=== PATIENT | female | born 1950 | race Caucasian/White ===

== ENCOUNTER → 2016-07-31 | Outpatient (CLI) | payer MEDICARE | LOC: WI 08:48 | PROVIDERS: ATTEND Nurse Practitioner Family | DX: Z12.31 Encounter for screening mammogram for malignant neoplasm of breast (principal) | CPT/HCPCS: 77067; G0202 ==

== ENCOUNTER 2016-08-30 13:41 | Emergency (ER) | payer MEDICARE ==
[2016-08-30] MEDS ORDERED: ASPIRIN 81 MG TABLET, CHEWABLE PO ONE (14:58)
[2016-08-30 15:25] LABS: ABSOLUTE BASOPHILS # (AUTO) 0.1 10^3/uL (0.0-0.2); ABSOLUTE EOSINOPHILS # (AUTO) 0.2 10^3/uL (0.0-0.6); ABSOLUTE LYMPHOCYTES (AUTO) 1.7 10^3/uL (0.5-4.7); ABSOLUTE MONOCYTES (AUTO) 0.6 10^3/uL (0.1-1.4); ABSOLUTE NEUT (AUTO) 5.2 10^3/uL (1.7-8.2); BASOPHILS % (AUTO) 0.9 % (0-2); EOSINOPHILS % (AUTO) 3.1 % (0-6); HEMATOCRIT 41.2 % (36.0-47.0); HEMOGLOBIN 13.9 g/dL (12.0-15.5); HGB HCT DIFFERENCE 0.5; LYMPHOCYTES % (AUTO) 21.1 % (13-45); MEAN CORPUSCULAR HEMOGLOBIN 28.6 pg (27.0-33.4); MEAN CORPUSCULAR HGB CONC 33.9 g/dL (32.0-36.0); MEAN CORPUSCULAR VOLUME 85 fl (80-97); RED BLOOD COUNT 4.87 10^6/uL (3.72-5.28); RED CELL DISTRIBUTION WIDTH 14.6 % (11.5-14.0); SEGMENTED NEUTROPHILS % (AUTO) 66.9 % (42-78); WHITE BLOOD COUNT 7.9 10^3/uL (4.0-10.5)
[2016-08-30 15:41] LABS: ALANINE AMINOTRANSFERASE 29 U/L (9-52); ALBUMIN 4.7 g/dL (3.5-5.0); ALKALINE PHOSPHATASE 91 U/L (38-126); ANION GAP 15 (5-19); ASPARTATE AMINO TRANSFERASE 21 U/L (14-36); BILIRUBIN,DIRECT 0.3 mg/dL (0.0-0.4); BILIRUBIN,TOTAL 0.7 mg/dL (0.2-1.3); BLOOD UREA NITROGEN 9 mg/dL (7-20); CALCIUM 10.5 mg/dL (8.4-10.2); CARBON DIOXIDE 31 mmol/L (22-30); CHLORIDE 99 mmol/L (98-107); CREATININE RESULT 0.63 mg/dL (0.52-1.25); GLUCOSE 102 mg/dL (75-110); SODIUM 144.5 mmol/L (137-145)
[2016-08-30 15:55] LABS: CREATINE KINASE MB < 0.22 ng/mL (<4.55); TROPONIN I < 0.012 ng/mL
--- NOTE | 2016-08-30 16:05 | ER Document Report ---
ED General - General Chief Complaint: Arm Pain Stated Complaint: NECK/ARM PAIN Mode of Arrival: Ambulatory Information source: Patient Notes: 65 yr old female presents with complaints of left neck pain, dizziness and left abd pain. Pt notes that these pains have been intermittent over the past few months to years. 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 Pt notes 2 weeks ago she had left arm pain. TRAVEL OUTSIDE OF THE [place] IN LAST 30 DAYS: No - HPI Onset: Other Onset/Duration: Intermittent Quality of pain: Sharp Severity: Mild Pain Level: 1 Associated symptoms: Other Exacerbated by: Denies Relieved by: Denies Similar symptoms previously: Yes Recently seen / treated by doctor: Yes Past Medical History - Social History Smoking Status: Never Smoker Cigarette use (# per day): No Chew tobacco use (# tins/day): No Smoking Education Provided: No Family History: Reviewed & Not Pertinent Patient has suicidal ideation: No Patient has homicidal ideation: No - Past Medical History Cardiac Medical History: Reports: Hx Hypercholesterolemia, Hx Hypertension Pulmonary Medical History: Reports: Hx Asthma Renal/ Medical History: Denies: Hx Peritoneal Dialysis Past Surgical History: Reports: Hx Hysterectomy, Hx Orthopedic Surgery - back surgery, knee surgery, shoulder surgery Review of Systems - Review of Systems Notes: REVIEW OF SYSTEMS: CONSTITUTIONAL : Denies fever, chills, or sweats. Denies recent illness. EENT: Admits to left neck pain CARDIOVASCULAR: Denies chest pain. Denies palpitations or racing or irregular heart beat. Denies ankle edema. RESPIRATORY: Denies cough, cold, or chest congestion. Denies shortness of breath, difficulty breathing, or wheezing. GASTROINTESTINAL: Denies abdominal pain or distention. Denies nausea, vomiting , or diarrhea. Denies blood in vomitus, stools, or per rectum. Denies black, tarry stools. Denies constipation. GENITOURINARY: Denies difficulty urinating, painful urination, burning, frequency, blood in urine, or discharge. FEMALE GENITOURINARY: Denies vaginal bleeding, heavy or abnormal periods, irregular periods. Denies vaginal discharge or odor. MUSCULOSKELETAL: Denies back or neck pain or stiffness. Denies joint pain or swelling. SKIN: Denies rash, lesions or sores. HEMATOLOGIC : Denies easy bruising or bleeding. LYMPHATIC: Denies swollen, enlarged glands. NEUROLOGICAL: Admits to dizziness PSYCHIATRIC: Denies anxiety or stress. Denies depression, suicidal ideation, or homicidal ideation. ALL OTHER SYSTEMS REVIEWED AND NEGATIVE. Dictation was performed using [email or web address] voice recognition software PHYSICAL EXAMINATION: GENERAL: Well-appearing, well-nourished and in no acute distress. HEAD: Atraumatic, normocephalic. EYES: Pupils equal round and reactive to light, extraocular movements intact, conjunctiva are normal. ENT: Nares patent, oropharynx clear without exudates. Moist mucous membranes. NECK: Normal range of motion, supple without lymphadenopathy LUNGS: Breath sounds clear to auscultation bilaterally and equal. No wheezes rales or rhonchi. HEART: Regular rate and rhythm without murmurs ABDOMEN: Soft, nontender, nondistended abdomen. No guarding, no rebound. No masses appreciated. Female : deferred Musculoskeletal: Normal range of motion, no pitting or edema. No cyanosis. NEUROLOGICAL: Cranial nerves grossly intact. Normal speech, normal gait. Normal sensory, motor exams PSYCH: Normal mood, normal affect. SKIN: Warm, Dry, normal turgor, no rashes or lesions noted. 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 does not beleive patient requires any emergent intervention since patient has no lower extremity complaints 08/30/16 17:44 Given that patient has no chest pain no other life-threatening issues and these are all chronic I believe she is stable for discharge with the understanding that she must follow-up with a litigation counsel for reevaluation. Patient states she will do so. I believe patient needs her aorta and carotids evaluated further by otherwise appears stable at this time. Patient is very happy with this plan Patient was offered admission but refuses to be admitted because she does not wish to stay After performing a Medical Screening Examination, I estimate there is LOW risk for RUPTURED ESOPHAGUS, PNEUMOTHORAX, PULMONARY EMBOLISM, ACUTE CORONARY SYNDROME, OR THORACIC AORTIC DISSECTION, thus I consider the discharge disposition reasonable. I have reevaluated this patient multiple times and no significant life threatening changes are noted. The patient and I have discussed the diagnosis and risks, and we agree with discharging home with close follow-up. We also discussed returning to the Emergency Department immediately if new or worsening symptoms occur. We have discussed the symptoms which are most concerning (e.g., bloody sputum, worsening pain or shortness of breath) that necessitate immediate return. - Vital Signs Vital signs: Temp Pulse Resp BP Pulse Ox 97.5 F 96 19 142/75 H 99 08/30/16 13:43 08/30/16 13:43 08/30/16 16:22 08/30/16 16:22 08/30/16 16:22 - Laboratory Result Diagrams: 08/30/16 15:08 08/30/16 15:08 Laboratory results interpreted by me: 08/30/16 08/30/16 15:08 15:08 RDW 14.6 H Carbon Dioxide 31 H Calcium 10.5 H - Diagnostic Test Radiology reviewed: Image reviewed, Reports reviewed - EKG Interpretation by [place] EKG shows normal: Sinus rhythm, [place], Intervals, QRS Complexes Discharge - Discharge Clinical Impression: severe distal aortic stenosis, Lightheadedness Condition: Stable Disposition: HOME, SELF-CARE Instructions: Dizziness ([facility]) Additional Instructions: Follow up with your physician tomorrow for further care or return to the ED IMMEDIATELY if symptoms worsen or new concerns occur. If you cannot afford to follow up with your primary care physician a list of low cost clinics have been provided at the end of your discharge papers as well. Referrals: JOSEPHINE CHAPARRO MD [ACTIVE STAFF] - Follow up tomorrow
--- NOTE | 2016-08-30 16:26 | EKG REPORT ---
SEVERITY:- ABNORMAL ECG - SINUS RHYTHM PROBABLE ANTEROSEPTAL INFARCT, AGE INDETERM BORDERLINE T ABNORMALITIES, INFERIOR LEADS : Confirmed by: Yaron Arciniega MD 30-Aug-2016 16:25:35
[2016-08-30 17:49] VITALS: BP 132/85
== END 2016-08-30 17:55 | disposition home or self-care (01) ==
LOC: ER 13:41
DX: I35.0 Nonrheumatic aortic (valve) stenosis (principal); R42 Dizziness and giddiness; M54.2 Cervicalgia; M79.602 Pain in left arm; R10.9 Unspecified abdominal pain; E78.00 Pure hypercholesterolemia, unspecified; I10 Essential (primary) hypertension; Z90.710 Acquired absence of both cervix and uterus
CPT/HCPCS: 93005; 99284; 36415; 82553; 83605; 85025; 80053; 84484; 83880; 71010; 93010; A9270

== ENCOUNTER 2016-09-15 06:01 | Emergency (ER) | payer MEDICARE ==
[2016-09-15] MEDS ORDERED: MECLIZINE HCL 12.5 MG TABLET PO ONE (07:03)
[2016-09-15] MEDS ORDERED: NORMAL SALINE 1000 ML 1,000 ML IV ONE (07:05)
[2016-09-15 08:01] LABS: ABSOLUTE BASOPHILS # (AUTO) 0.1 10^3/uL (0.0-0.2); ABSOLUTE EOSINOPHILS # (AUTO) 0.1 10^3/uL (0.0-0.6); ABSOLUTE LYMPHOCYTES (AUTO) 1.5 10^3/uL (0.5-4.7); ABSOLUTE MONOCYTES (AUTO) 0.7 10^3/uL (0.1-1.4); EOSINOPHILS % (AUTO) 1.3 % (0-6); HEMATOCRIT 40.2 % (36.0-47.0); HEMOGLOBIN 13.8 g/dL (12.0-15.5); HGB HCT DIFFERENCE 1.2; LYMPHOCYTES % (AUTO) 15.6 % (13-45); MEAN CORPUSCULAR HEMOGLOBIN 28.7 pg (27.0-33.4); MEAN CORPUSCULAR HGB CONC 34.2 g/dL (32.0-36.0); MEAN CORPUSCULAR VOLUME 84 fl (80-97); MONOCYTES % (AUTO) 7.4 % (3-13); RED BLOOD COUNT 4.79 10^6/uL (3.72-5.28); RED CELL DISTRIBUTION WIDTH 14.4 % (11.5-14.0); SEGMENTED NEUTROPHILS % (AUTO) 74.7 % (42-78); WHITE BLOOD COUNT 9.3 10^3/uL (4.0-10.5)
[2016-09-15 08:18] LABS: ALANINE AMINOTRANSFERASE 28 U/L (9-52); ALBUMIN 4.5 g/dL (3.5-5.0); ALKALINE PHOSPHATASE 82 U/L (38-126); ANION GAP 14 (5-19); ASPARTATE AMINO TRANSFERASE 20 U/L (14-36); BILIRUBIN,DIRECT 0.3 mg/dL (0.0-0.4); BILIRUBIN,TOTAL 0.6 mg/dL (0.2-1.3); BLOOD UREA NITROGEN 17 mg/dL (7-20); CALCIUM 9.9 mg/dL (8.4-10.2); CARBON DIOXIDE 30 mmol/L (22-30); CHLORIDE 101 mmol/L (98-107); CREATINE KINASE 40 U/L (30-135); CREATININE RESULT 0.64 mg/dL (0.52-1.25); GLUCOSE 115 mg/dL (75-110); MAGNESIUM 2.2 mg/dL (1.6-2.3); TOTAL PROTEIN 8.3 g/dL (6.3-8.2)
[2016-09-15 08:30] LABS: POTASSIUM 3.5 mmol/L (3.6-5.0)
[2016-09-15 08:33] LABS: CREATINE KINASE MB < 0.22 ng/mL (<4.55); TROPONIN I < 0.012 ng/mL
[2016-09-15 09:19] LABS: APPEARANCE,URINE CLEAR; BILIRUBIN,URINE NEGATIVE (NEGATIVE); GLUCOSE, URINE NEGATIVE (NEGATIVE); KETONES,URINE NEGATIVE (NEGATIVE); LEUKOCYTE ESTERASE,URINE TRACE (NEGATIVE); NITRITE,URINE NEGATIVE (NEGATIVE); PROTEIN,URINE NEGATIVE (NEGATIVE); URINE SPECIFIC GRAVITY 1.009; UROBILINOGEN,URINE NEGATIVE mg/dL (<2.0)
[2016-09-15 09:51] LABS: URINE BARBITURATES SCREEN NEGATIVE; URINE METHADONE SCREEN NEGATIVE; URINE OPIATES LOW NEGATIVE; URINE PHENCYCLIDINE SCREEN NEGATIVE
--- NOTE | 2016-09-15 10:09 | EKG REPORT ---
SEVERITY:- NORMAL ECG - SINUS RHYTHM : Confirmed by: Magdalene rByan 15-Sep-2016 10:08:41
[2016-09-15] MEDS ORDERED: POTASSIUM CHLORIDE 10 MEQ TABLET.SA PO ONE (12:13)
--- NOTE | 2016-09-15 12:27 | ER Document Report ---
ED General - General Chief Complaint: Dizziness Stated Complaint: LIGHT HEADED AND ARM TINGLING TRAVEL OUTSIDE OF THE [place] IN LAST 30 DAYS: No - HPI Patient complains to provider of: dizziness left arm tingling left chest wall pain Notes: Patient coming in for evaluation of dizziness left arm tingling and left chest wall pain. Patient states dizziness left arm tingling are chronic symptoms ongoing for quite a few months and is currently in the middle of an outpatient workup for further evaluation. Patient was recent seen in the ER for the symptoms ration did have outpatient CT scans performed showing large amount calcification in the arterial system of the lower half of her body including of the aorta he may see the previous visit for the CT read. Patient states she also just recently had a stress test performed does not know results hours been greater than a week states she's not been contacted by the cardiology office. States her PCP as planned for her to have a further evaluation performed further testing later on this week. Patient states that she was following up with vascular surgery at [facility] patient was not given the surgical option therefore now she is following up with basilar surgery at [facility] and hasn' t appointment in the upcoming week. Patient states since that time she's developed some intermittent left-sided chest pain along with her other chronic symptoms. Patient denies any recent travel fevers chills nausea vomiting diarrhea. Patient was able to drive herself to the ER. Patient states she is currently on meclizine 12.5 mg a few times a day stating that greater than 12.5 makes her too drowsy. - Related Data Allergies/Adverse Reactions: acetaminophen [From Vicodin] Allergy (Verified 09/15/16 06:13) albuterol [From Proventil HFA] Allergy (Verified 09/15/16 06:13) amoxicillin [From Augmentin] Allergy (Verified 09/15/16 06:13) atenolol Allergy (Verified 09/15/16 06:13) brompheniramine [From Drixoral] Allergy (Verified 09/15/16 06:13) cisapride [From Propulsid] Allergy (Verified 09/15/16 06:13) clavulanic acid [From Augmentin] Allergy (Verified 09/15/16 06:13) clindamycin Allergy (Verified 09/15/16 06:13) dexbrompheniramine [From Drixoral] Allergy (Verified 09/15/16 06:13) erythromycin base [From Sloan-Tab] Allergy (Verified 09/15/16 06:13) fluvastatin [From Lescol] Allergy (Verified 09/15/16 06:13) hydrocodone [From Vicodin] Allergy (Verified 09/15/16 06:13) ibuprofen Allergy (Verified 09/15/16 06:13) metoprolol [From Toprol XL] Allergy (Verified 09/15/16 06:13) metronidazole Allergy (Verified 09/15/16 06:13) misoprostol [From Cytotec] Allergy (Verified 09/15/16 06:13) mometasone furoate [From Asmanex Twisthaler] Allergy (Verified 09/15/16 06:13) naproxen [From Anaprox] Allergy (Verified 09/15/16 06:13) nefazodone [From Serzone] Allergy (Verified 09/15/16 06:13) nitrofurantoin [From Macrobid] Allergy (Verified 09/15/16 06:13) orphenadrine [From Norflex] Allergy (Verified 09/15/16 06:13) pirbuterol [From Maxair Autohaler] Allergy (Verified 09/15/16 06:13) pseudoephedrine [From Drixoral] Allergy (Verified 09/15/16 06:13) rifampin Allergy (Verified 09/15/16 06:13) Sulfa (Sulfonamide Antibiotics) Allergy (Verified 09/15/16 06:13) tiotropium [From Spiriva with HandiHaler] Allergy (Verified 09/15/16 06:13) trandolapril [From Mavik] Allergy (Verified 09/15/16 06:13) valsartan [From Diovan] Allergy (Verified 09/15/16 06:13) vancomycin Allergy (Verified 09/15/16 06:13) Past Medical History - Social History Smoking Status: Unknown if Ever Smoked Family History: Reviewed & Not Pertinent - Past Medical History Cardiac Medical History: Reports: Hx Hypercholesterolemia, Hx Hypertension Pulmonary Medical History: Reports: Hx Asthma Renal/ Medical History: Denies: Hx Peritoneal Dialysis Past Surgical History: Reports: Hx Hysterectomy, Hx Orthopedic Surgery - back surgery, knee surgery, shoulder surgery Review of Systems - Review of Systems Constitutional: Weakness - Dizziness left-sided chest wall pain arm numbness EENT: No symptoms reported Cardiovascular: No symptoms reported Respiratory: No symptoms reported Gastrointestinal: No symptoms reported Genitourinary: No symptoms reported Female Genitourinary: No symptoms reported Musculoskeletal: No symptoms reported Skin: No symptoms reported Hematologic/Lymphatic: No symptoms reported Neurological/Psychological: No symptoms reported Physical Exam - Vital signs Vitals: Temp Pulse Resp BP Pulse Ox 97.4 F 94 20 161/85 H 100 09/15/16 06:13 09/15/16 06:13 09/15/16 06:13 09/15/16 06:13 09/15/16 06:13 Interpretation: Normal - General General appearance: Appears well, Alert - HEENT Head: Normocephalic, Atraumatic Eyes: Normal Pupils: PERRL - Respiratory Respiratory status: No respiratory distress Chest status: Tender - Minimally tender to palpation Breath sounds: Normal Chest palpation: Normal - Cardiovascular Rhythm: Regular Heart sounds: Normal auscultation Murmur: No - Abdominal Inspection: Normal Distension: No distension Bowel sounds: Normal Tenderness: Nontender Organomegaly: No organomegaly - Back Back: Normal, Nontender - Extremities General upper extremity: Normal inspection, Nontender, Normal color, Normal ROM , Normal temperature General lower extremity: Normal inspection, Nontender, Normal color, Normal ROM , Normal temperature, Normal weight bearing. No: Melvi's sign - Neurological Neuro grossly intact: Yes Cognition: Normal Orientation: AAOx4 [place] Coma Scale Eye Opening: Spontaneous [place] Coma Scale Verbal: Oriented [place] Coma Scale Motor: Obeys Commands [place] Coma Scale Total: 15 Speech: Normal Motor strength normal: LUE, RUE, LLE, RLE Sensory: Normal - Psychological Associated symptoms: Normal affect, Normal mood - Skin Skin Temperature: Warm Skin Moisture: Dry Skin Color: Normal Course - Re-evaluation Re-evalutation: 09/15/16 14:[address] scan was read showing possible aneurysm therefore recommended further imaging. Did discuss with the radiologist on recommended MRA MRI which did not show any signs of aneurysms also does not show any signs of stroke that was when the patient's dizziness. The very proximal carotids were also visualized no signs of any significant plaque formation or stenosis. Patient's laboratory does not show any signs of any cardiac etiology. Patient has been stable while she's been here in the ER no infectious etiology seen. At this time does not have a reason for the patient's symptoms however there seems to be no critical etiology or pathology. Patient was recommended to continue to follow-up as outpatient patient agrees patient was given a copy of her laboratory results and a CD of the imaging performed. - Vital Signs Vital signs: Temp Pulse Resp BP Pulse Ox 97.7 F 79 19 142/93 H 98 09/15/16 13:01 09/15/16 13:01 09/15/16 13:01 09/15/16 13:01 09/15/16 13:01 - Laboratory Result Diagrams: 09/15/16 07:48 09/15/16 07:48 Laboratory results interpreted by me: 09/15/16 09/15/16 09/15/16 07:48 07:48 09:00 RDW 14.4 H Potassium 3.5 L Glucose 115 H Total Protein 8.3 H Ur Leukocyte Esterase TRACE H Discharge - Discharge Clinical Impression: Dizziness, Arm paresthesia, left, Hypokalemia Condition: Good Disposition: HOME, SELF-CARE Additional Instructions: At this time your labwork only shows low potassium which we did replace here in the ER. I do not have a clear etiology for your dizziness or for your symptoms. This is a chronic condition however I do believe that you're getting a very thorough workup and can continue this workup as outpatient. Your MRI MRA today was negative of your brain does not look to be any signs of stroke or aneurysm causing your symptoms. Please follow-up with your physicians for your continuing workup as outpatient please continue your home medications as prescribed Referrals: JAYME HERNÁNDEZ MD [Primary Care Provider] - Follow up in 3-5 days
[2016-09-15 13:03] VITALS: BP 142/93
== END 2016-09-15 13:01 | disposition home or self-care (01) ==
LOC: ER 06:01
DX: R42 Dizziness and giddiness (principal); R20.2 Paresthesia of skin; E87.6 Hypokalemia; I10 Essential (primary) hypertension; E78.00 Pure hypercholesterolemia, unspecified; Z88.6 Allergy status to analgesic agent; Z88.0 Allergy status to penicillin; Z88.2 Allergy status to sulfonamides; Z88.3 Allergy status to other anti-infective agents; Z90.710 Acquired absence of both cervix and uterus
CPT/HCPCS: 93005; 99285; 36415; 82553; 82550; 83690; 83735; 85025; 80053; 81001; 84484; 80307; 70551; 70544; 71020; 70450; 93010; A9270 ×2; J7030; J3490

== ENCOUNTER → 2016-11-08 | Outpatient (CLI) | payer MEDICARE ==
--- NOTE | 2016-11-09 08:44 | RADIOLOGY REPORT (SQ) ---
EXAM DESCRIPTION: MRI CERVICAL SPINE WITHOUT COMPLETED DATE/TIME: 11/08/2016 8:16 pm REASON FOR STUDY: CERVICALGIA; LOW BACK PAIN M54.2 CERVICALGIA M54.5 LOW BACK PAIN COMPARISON: 09/03/2014 TECHNIQUE: Sagittal and Axial imaging includes T1, T2, STIR and gradient echo sequences. LIMITATIONS: None. FINDINGS: ALIGNMENT: Normal. VERTEBRAE: Intact. BONE MARROW: Normal. No marrow replacement or reactive changes. DISCS: Normal. No significant abnormal signal or loss of height. HARDWARE: None in the spine. CORD AND BASE OF BRAIN: Normal in size and signal intensity. SOFT TISSUES: No soft tissue masses. C1-C2: No significant spinal stenosis. C2-C3: No significant spinal stenosis or exit foraminal stenosis. C3-C4: No significant spinal stenosis or exit foraminal stenosis. C4-C5: No significant spinal stenosis or exit foraminal stenosis. C5-C6: No significant spinal stenosis or exit foraminal stenosis. C6-C7: No significant spinal stenosis or exit foraminal stenosis. C7-T1: No significant spinal stenosis or exit foraminal stenosis. UPPER THORACIC: Incompletely imaged. No significant spinal stenosis or exit foraminal stenosis. OTHER: No other significant finding. IMPRESSION: NORMAL MRI CERVICAL SPINE. TECHNICAL DOCUMENTATION: JOB ID: [id number] [employer]- All Rights Reserved
--- NOTE | 2016-11-09 10:39 | RADIOLOGY REPORT (SQ) ---
EXAM DESCRIPTION: MRI LUMBAR SPINE WITHOUT COMPLETED DATE/TIME: 11/08/2016 8:16 pm REASON FOR STUDY: CERVICALGIA; LOW BACK PAIN M54.2 CERVICALGIA M54.5 LOW BACK PAIN COMPARISON: None. TECHNIQUE: Sagittal and Axial imaging includes T1, T2, STIR and gradient echo sequences. Coronal T2/ HASTE imaging. LIMITATIONS: None. FINDINGS: VISUALIZED UPPER ABDOMEN: Limited evaluation. No acute or suspicious findings suggested. SEGMENTATION: No transitional anatomy. The lowest well-developed disc space is labeled L5-S1. ALIGNMENT: Anatomic. VERTEBRAE: Intact. BONE MARROW: Reactive endplate changes L4-5 and L5-S1. DISC SIGNAL: Loss height and T2 signal L4-5 and L5-S1. POSTERIOR ELEMENTS: Generally intact. No pars defect evident. HARDWARE: None in the spine. CORD AND CONUS: Normal in size and signal intensity. Conus at the appropriate level. SOFT TISSUES: No aortic aneurysm seen. No bulky retroperitoneal adenopathy or mass. No paraspinal mas s or fluid. L1-L2: No significant spinal stenosis or exit foraminal stenosis. L2-L3: Mild disc bulge. Facet ligamentous hypertrophy. Mild narrowing of the exit foramina. L3-L4: Moderate disc bulge. Ligamentous and facet hypertrophy with lateral recess narrowing. Mild n arrowing of the exit foramina and central canal stenosis. L4-L5: Generalized degenerative disc with diffuse bulge. Facet and ligamentous hypertrophy. Moderat e narrowing of the exit foramina. L5-S1: Generalized degenerative disc with broad-based bulge. Mild narrowing of the exit foramina. LOWER THORACIC: Incompletely imaged degenerative disc at T10-11 SACRUM: Visualized upper sacrum intact. OTHER: No other significant findings. IMPRESSION: Degenerative disc at L4-5 and L5-S1. Moderate narrowing of the exit foramina at L4-5 an d mild narrowing of the exit foramina at L5-S1. At L3-4 there is mild narrowing of the exit foramina with central canal stenosis. Degenerative disc T10-11. Incompletely imaged. TECHNICAL DOCUMENTATION: JOB ID: [id number] [employer]- All Rights Reserved
== END ==
LOC: RAD 18:41
PROVIDERS: ATTEND Orthopaedic Surgery
DX: M54.2 Cervicalgia (principal); M54.5 Low back pain; M51.37 Other intervertebral disc degeneration, lumbosacral region
CPT/HCPCS: 72141; 72148

== ENCOUNTER → 2017-08-01 | Outpatient (CLI) | payer MEDICARE ==
--- NOTE | 2017-08-01 12:13 | WOMENS IMAGING REPORT ---
EXAM DESCRIPTION: BILAT SCREENING MAMMO W/CAD COMPLETED DATE/TIME: 08/01/2017 11:40 am REASON FOR STUDY: ROUTINE SCREENING;Z12.31 Z12.31 ENCNTR SCREEN MAMMOGRAM FOR MALIGNANT NEOPLASM OF LYUBOV COMPARISON: 07/31/2016 and 07/26/2015. TECHNIQUE: Standard craniocaudal and mediolateral oblique views of each breast recorded using [employer] acquisition. LIMITATIONS: None. FINDINGS: Findings present which are benign by mammographic criteria. No suspicious masses, calcifi cations or architectural distortion. Pertinent benign findings: Scattered nodules. Read with the assistance of CAD. .[facility] - R2 Cenova Version 1.3 .[facility] - R2 Cenova Version 1.3 .[facility] - R2 Cenova Version 2.4 .[facility] - R2 Cenova Version 2.4 .[facility] - R2 Smutter Version 9.2 Benign mammographic findings may include one or more of the following: Smooth masses, popcorn/rim/co arse calcifications, asymmetries, post-procedure changes, and lesions with long-standing stability. IMPRESSION: BENIGN MAMMOGRAPHIC FINDINGS. BIRADS 2 BREAST DENSITY: a. The breasts are almost entirely fatty. BIRAD: 2 BENIGN FINDING(S) RECOMMENDATION: ROUTINE SCREENING COMMENT: The patient has been notified of the results by letter per SA requirements. Additional no tification policies are in place for contacting patient with suspicious or incomplete findings. Quality ID #225: The [employer] recommends an annual screening mammogram for women aged 40 years or over. This facility utilizes a reminder system to ensure that all patients receive reminder letters, and/or direct phone calls for appointments. This includes reminders for routine scr eening mammograms, diagnostic mammograms, or other Breast Imaging Interventions when appropriate. Th is patient will be placed in the appropriate reminder system. The [place] (ACR) has developed recommendations for screening MRI of the breast s in certain patient populations, to be used in conjunction with mammography. Breast MRI surveillanc e may be appropriate for women with more than 20% lifetime risk of developing breast cancer as deter mined by genetic testing, significant family history of the disease, or history of mantle radiation f or Hodgkins Disease. ACR Practice Guidelines 2008. TECHNICAL DOCUMENTATION: FINDING NUMBER: (1) ASSESSMENT: (1) JOB ID: [id number] [email or web address]- All Rights Reserved Reading location - IP/workstation name: [email or web address]
== END ==
LOC: WI 10:08
PROVIDERS: ATTEND Nurse Practitioner Family
DX: Z12.31 Encounter for screening mammogram for malignant neoplasm of breast (principal)
CPT/HCPCS: 77067

== ENCOUNTER 2017-09-05 10:08 | Emergency (ER) | payer MEDICARE ==
--- NOTE | 2017-09-05 10:21 | EKG REPORT ---
SEVERITY:- BORDERLINE ECG - SINUS RHYTHM BORDERLINE T ABNORMALITIES, DIFFUSE LEADS : Confirmed by: Magdalene Bryan 05-Sep-2017 10:20:27
--- NOTE | 2017-09-05 10:48 | ER Document Report ---
ED Medical Screen (RME) - General Chief Complaint: Neck Problem Stated Complaint: NECK PAIN Time Seen by Provider: 09/05/17 10:27 Notes: Patient is a 66 year old female that presents to the emergency department today with multiple complaints. Patient states this morning when waking up she had left sided neck pain. Patient states that shortly after waking up she "heard a pop" in her neck and since that time she has had difficulty with balance when standing described as "not dizziness". Patient states she has not had neck pain since hearing this pop. Patient mentions that she has a "pins and needles" feeling throughout her head and forehead, not unilateral. Patient also mentions "left breast pain that radiates to her back" which has been present for several days. Patient has a history of vertigo treated with meclizine and Choco maneuver. Patient states she called her PCP who told her to come to the ED for evaluation. I have greeted and performed a rapid initial assessment of this patient. A comprehensive ED assessment and evaluation of the patient, analysis of test results, and completion of the medical decision making process will be conducted by additional ED providers. Review of systems: Constitutional: No symptoms reported EENT: No symptoms reported Cardiovascular: No symptoms reported Respiratory: No symptoms reported Gastrointestinal: No symptoms reported Genitourinary: No symptoms reported Musculoskeletal: No symptoms reported Skin: No symptoms reported Hematologic/Lymphatic: No symptoms reported Neurological/Psychological: No symptoms reported Yes All other systems reviewed and negative Physical Exam: General: Alert, appears well. HEENT: Normocephalic. Atraumatic. PERRLA. Extraocular movements intact. Oropharynx clear. Neck: Supple. Respiratory: No respiratory distress. Abdominal: Normal Inspection. No distension. Extremities: Moves all four extremities. Neurological: Normal cognition. AAOx4. Normal speech. Psychological: Normal affect. Normal Mood. Skin: Warm. Dry. Normal color. TRAVEL OUTSIDE OF THE [place] IN LAST 30 DAYS: No - Related Data Allergies/Adverse Reactions: acetaminophen [From Vicodin] Allergy (Verified 09/05/17 10:09) albuterol [From Proventil HFA] Allergy (Verified 09/05/17 10:09) amoxicillin [From Augmentin] Allergy (Verified 09/05/17 10:09) atenolol Allergy (Verified 09/05/17 10:09) brompheniramine [From Drixoral] Allergy (Verified 09/05/17 10:09) cisapride [From Propulsid] Allergy (Verified 09/05/17 10:09) clavulanic acid [From Augmentin] Allergy (Verified 09/05/17 10:09) clindamycin Allergy (Verified 09/05/17 10:09) dexbrompheniramine [From Drixoral] Allergy (Verified 09/05/17 10:09) erythromycin base [From Sloan-Tab] Allergy (Verified 09/05/17 10:09) fluvastatin [From Lescol] Allergy (Verified 09/05/17 10:09) hydrocodone [From Vicodin] Allergy (Verified 09/05/17 10:09) ibuprofen Allergy (Verified 09/05/17 10:09) metoprolol [From Toprol XL] Allergy (Verified 09/05/17 10:09) metronidazole Allergy (Verified 09/05/17 10:09) misoprostol [From Cytotec] Allergy (Verified 09/05/17 10:09) mometasone furoate [From Asmanex Twisthaler] Allergy (Verified 09/05/17 10:09) naproxen [From Anaprox] Allergy (Verified 09/05/17 10:09) nefazodone [From Serzone] Allergy (Verified 09/05/17 10:09) nitrofurantoin [From Macrobid] Allergy (Verified 09/05/17 10:09) orphenadrine [From Norflex] Allergy (Verified 09/05/17 10:09) pirbuterol [From Maxair Autohaler] Allergy (Verified 09/05/17 10:09) pseudoephedrine [From Drixoral] Allergy (Verified 09/05/17 10:09) rifampin Allergy (Verified 09/05/17 10:09) Sulfa (Sulfonamide Antibiotics) Allergy (Verified 09/05/17 10:09) tiotropium [From Spiriva with HandiHaler] Allergy (Verified 09/05/17 10:09) trandolapril [From Mavik] Allergy (Verified 09/05/17 10:09) valsartan [From Diovan] Allergy (Verified 09/05/17 10:09) vancomycin Allergy (Verified 09/05/17 10:09) Past Medical History - Social History Chew tobacco use (# tins/day): No Frequency of alcohol use: None Drug Abuse: None - Past Medical History Cardiac Medical History: Reports: Hx Hypercholesterolemia, Hx Hypertension Pulmonary Medical History: Reports: Hx Asthma Renal/ Medical History: Denies: Hx Peritoneal Dialysis Past Surgical History: Reports: Hx Hysterectomy, Hx Orthopedic Surgery - back surgery, knee surgery, shoulder surgery Physical Exam - Vital signs Vitals: Temp Pulse Resp BP Pulse Ox 97.5 F 74 16 153/67 H 98 09/05/17 10:24 09/05/17 10:24 09/05/17 10:24 09/05/17 10:24 09/05/17 10:24 Course - Vital Signs Vital signs: Temp Pulse Resp BP Pulse Ox 97.5 F 74 16 153/67 H 98 09/05/17 10:24 09/05/17 10:24 09/05/17 10:24 09/05/17 10:24 09/05/17 10:24 Scribe Documentation - Scribe Written by Lux:: Lux Mcneil, 09/05/2017 1048 acting as scribe for :: Francis
[2017-09-05 11:05] LABS: ABSOLUTE LYMPHOCYTES (AUTO) 1.5 10^3/uL (0.5-4.7); ABSOLUTE NEUT (AUTO) 7.8 10^3/uL (1.7-8.2); BASOPHILS % (AUTO) 0.4 % (0-2); EOSINOPHILS % (AUTO) 0.5 % (0-6); HEMATOCRIT 41.6 % (36.0-47.0); HEMOGLOBIN 14.4 g/dL (12.0-15.5); MEAN CORPUSCULAR HEMOGLOBIN 29.7 pg (27.0-33.4); MEAN CORPUSCULAR HGB CONC 34.5 g/dL (32.0-36.0); MEAN CORPUSCULAR VOLUME 86 fl (80-97); PLATELET COUNT 299 10^3/uL (150-450); RED BLOOD COUNT 4.83 10^6/uL (3.72-5.28); SEGMENTED NEUTROPHILS % (AUTO) 75.1 % (42-78); TOTAL CELLS COUNTED % (AUTO) 100 %; WHITE BLOOD COUNT 10.4 10^3/uL (4.0-10.5)
--- NOTE | 2017-09-05 11:12 | ER Document Report ---
ED General - General Chief Complaint: Neck Problem Stated Complaint: NECK PAIN Time Seen by Provider: 09/05/17 10:27 Notes: 66-year-old female to emergency department complaining of a "pop" in her neck with subsequent dizziness. Patient states that she is currently being treated for vertigo but "this is not my vertigo I know what my vertigo feels like". Patient states that when she moves her head she gets dizzy but this is not vertigo according to patient. Patient states that she has some nausea and feels like she needs to vomit. Denies any chest pain or shortness of breath. Was seen here approximately 1 year ago for similar symptoms where she had CT done as well as MRI. Followed by [facility]. Was instructed to come here for evaluation. TRAVEL OUTSIDE OF THE [place] IN LAST 30 DAYS: No - HPI Onset: Just prior to arrival Onset/Duration: Sudden - Related Data Allergies/Adverse Reactions: acetaminophen [From Vicodin] Allergy (Verified 09/05/17 10:09) albuterol [From Proventil HFA] Allergy (Verified 09/05/17 10:09) amoxicillin [From Augmentin] Allergy (Verified 09/05/17 10:09) atenolol Allergy (Verified 09/05/17 10:09) brompheniramine [From Drixoral] Allergy (Verified 09/05/17 10:09) cisapride [From Propulsid] Allergy (Verified 09/05/17 10:09) clavulanic acid [From Augmentin] Allergy (Verified 09/05/17 10:09) clindamycin Allergy (Verified 09/05/17 10:09) dexbrompheniramine [From Drixoral] Allergy (Verified 09/05/17 10:09) erythromycin base [From Sloan-Tab] Allergy (Verified 09/05/17 10:09) fluvastatin [From Lescol] Allergy (Verified 09/05/17 10:09) hydrocodone [From Vicodin] Allergy (Verified 09/05/17 10:09) ibuprofen Allergy (Verified 09/05/17 10:09) metoprolol [From Toprol XL] Allergy (Verified 09/05/17 10:09) metronidazole Allergy (Verified 09/05/17 10:09) misoprostol [From Cytotec] Allergy (Verified 09/05/17 10:09) mometasone furoate [From Asmanex Twisthaler] Allergy (Verified 09/05/17 10:09) naproxen [From Anaprox] Allergy (Verified 09/05/17 10:09) nefazodone [From Serzone] Allergy (Verified 09/05/17 10:09) nitrofurantoin [From Macrobid] Allergy (Verified 09/05/17 10:09) orphenadrine [From Norflex] Allergy (Verified 09/05/17 10:09) pirbuterol [From Maxair Autohaler] Allergy (Verified 09/05/17 10:09) pseudoephedrine [From Drixoral] Allergy (Verified 09/05/17 10:09) rifampin Allergy (Verified 09/05/17 10:09) Sulfa (Sulfonamide Antibiotics) Allergy (Verified 09/05/17 10:09) tiotropium [From Spiriva with HandiHaler] Allergy (Verified 09/05/17 10:09) trandolapril [From Mavik] Allergy (Verified 09/05/17 10:09) valsartan [From Diovan] Allergy (Verified 09/05/17 10:09) vancomycin Allergy (Verified 09/05/17 10:09) Past Medical History - General Information source: Patient - Social History Smoking Status: Never Smoker Chew tobacco use (# tins/day): No Frequency of alcohol use: None Drug Abuse: None Lives with: Alone Family History: Reviewed & Not Pertinent Patient has suicidal ideation: No Patient has homicidal ideation: No - Past Medical History Cardiac Medical History: Reports: Hx Hypercholesterolemia, Hx Hypertension Pulmonary Medical History: Reports: Hx Asthma Renal/ Medical History: Denies: Hx Peritoneal Dialysis Past Surgical History: Reports: Hx Hysterectomy, Hx Orthopedic Surgery - back surgery, knee surgery, shoulder surgery Review of Systems - Review of Systems Constitutional: No symptoms reported EENT: See HPI, Vertigo. denies: Eye pain, Eye discharge, Blurred vision, Throat pain, Difficulty swallowing, Throat swelling, Mouth pain Cardiovascular: No symptoms reported Respiratory: No symptoms reported Gastrointestinal: No symptoms reported Genitourinary: No symptoms reported Female Genitourinary: No symptoms reported Musculoskeletal: No symptoms reported Skin: No symptoms reported Hematologic/Lymphatic: No symptoms reported Neurological/Psychological: See HPI, Other - Dizziness, vertigo Physical Exam - Vital signs Vitals: Temp Pulse Resp BP Pulse Ox 97.5 F 74 16 153/67 H 98 09/05/17 10:24 09/05/17 10:24 09/05/17 10:24 09/05/17 10:24 09/05/17 10:24 Interpretation: Normal - General General appearance: Appears well, Alert - HEENT Head: Normocephalic, Atraumatic Eyes: Normal Conjunctiva: Normal Cornea: Normal Pupils: PERRL Nasal: Normal Mouth/Lips: Normal Mucous membranes: Normal Pharynx: Normal Neck: Normal Notes: No carotid bruits - Respiratory Respiratory status: No respiratory distress Chest status: Nontender Breath sounds: Normal Chest palpation: Normal - Cardiovascular Rhythm: Regular Heart sounds: Normal auscultation Murmur: No - Abdominal Inspection: Normal Distension: No distension Bowel sounds: Normal Tenderness: Nontender Organomegaly: No organomegaly - Back Back: Normal, Nontender - Extremities General upper extremity: Normal inspection, Nontender, Normal color, Normal ROM , Normal temperature General lower extremity: Normal inspection, Nontender, Normal color, Normal ROM , Normal temperature, Normal weight bearing. No: Melvi's sign - Neurological Neuro grossly intact: Yes Cognition: Normal Orientation: AAOx4 [place] Coma Scale Eye Opening: Spontaneous [place] Coma Scale Verbal: Oriented [place] Coma Scale Motor: Obeys Commands [place] Coma Scale Total: 15 Speech: Normal Cerebellar coordination: Heel-ryan, Finger-nose rhombey Motor strength normal: LUE, RUE, LLE, RLE Sensory: Normal Notes: Negative Jannie-Hallpike maneuver there is no obvious nystagmus. No reproduction of patient's symptoms. - Psychological Associated symptoms: Normal affect, Normal mood - Skin Skin Temperature: Warm Skin Moisture: Dry Skin Color: Normal Course - Re-evaluation Re-evalutation: 09/05/17 12:00 Certain etiology of patient's symptoms. Expectations were explained to patient that we may or may not figure this out. Patient is currently being treated for vertigo which could blunt our evaluation as she has been taking meclizine. We will order a head CT as well as CTA of the head and neck to look for posterior circulation type issues. I discussed this with the patient she has agreed to this however when mentioned that we may need to follow-up with an MRI she said that she would not do an MRI as she had one done before and she is still trying to pay for it. I explained to her that if we feel and is in her best interest to get an MRI she would have to sign AGAINST MEDICAL ADVICE waiver if she refused however at this time will just proceed with the CT scan results of which. 09/05/17 13:45 Laboratory 09/05/17 09/05/17 09/05/17 10:55 10:55 10:55 WBC 10.4 RBC 4.83 Hgb 14.4 Hct 41.6 MCV 86 MCH 29.7 MCHC 34.5 RDW 15.0 H Plt Count 299 Seg Neutrophils % 75.1 Lymphocytes % 14.0 Monocytes % 10.0 Eosinophils % 0.5 Basophils % 0.4 Absolute Neutrophils 7.8 Absolute Lymphocytes 1.5 Absolute Monocytes 1.0 Absolute Eosinophils 0.0 Absolute Basophils 0.0 Sodium 145.6 H Potassium 3.9 Chloride 102 Carbon Dioxide 33 H Anion Gap 11 BUN 12 Creatinine 0.59 Est GFR ( Amer) > 60 Est GFR (Non-Af Amer) > 60 Glucose 101 Calcium 10.2 Total Bilirubin 0.3 Direct Bilirubin 0.2 Neonat Total Bilirubin Not Reportable Neonat Direct Bilirubin Not Reportable Neonat Indirect Bili Not Reportable AST 13 L ALT 25 Alkaline Phosphatase 72 Troponin I < 0.012 Total Protein 7.2 Albumin 4.2 Head CTA 09/05/17 10:40 IMPRESSION: NORMAL BRAIN CT WITH AND WITHOUT CONTRAST. NO CTA EVIDENCE OF STENOSIS OR ANEURYSM OF THE AGUA CALIENT[place] OF [place]. NO DISSECTION. EVIDENCE OF ACUTE STROKE: NO. Neck CTA 09/05/17 10:40 IMPRESSION: CALCIFIED PLAQUE IN THE CAROTID ARTERIES. 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 NO EVIDENCE OF DISSECTION IN THE CAROTID OR VERTEBRAL ARTERIES. Long discussion had with patient regards to her particular symptoms. There definitely is a concern for potential posterior circulation issues in the setting of her 50% stenosis of both internal carotid arteries. I have instructed patient that we wanted to do an MRA and MRI to rule out a stroke. Patient does not want that done at this facility as she has limited resources and does not want this done. I advised against this. Patient will sign AMA at this time. I am calling her primary care doctor as well to advise that she would likely need a MR study to rule out stroke. - Vital Signs Vital signs: Temp Pulse Resp BP Pulse Ox 98.0 F 102 H 16 136/80 H 94 09/05/17 12:03 09/05/17 12:03 09/05/17 12:03 09/05/17 12:03 09/05/17 12:03 - Laboratory Result Diagrams: 09/05/17 10:55 09/05/17 10:55 Laboratory results interpreted by me: 09/05/17 09/05/17 10:55 10:55 RDW 15.0 H Sodium 145.6 H Carbon Dioxide 33 H AST 13 L - EKG Interpretation by Me EKG shows normal: Sinus rhythm, [place], Intervals, QRS Complexes. abnormal: ST-T Waves Additional EKG results interpreted by me: 09/05/17 12:02 No significant change from previous EKG performed on 09/15/2016 with minor T- wave abnormalities seen in V2 as well as V5 which were seen on previous EKG. Discharge - Discharge Clinical Impression: Dizziness Condition: Good Disposition: HOME, SELF-CARE Instructions: Dizziness ([facility]) Additional Instructions: Please follow-up with your regular doctor for further testing. We offered an MRI of your brain today but you have decided against that. It is advisable that you follow-up with your regular doctor soon as possible. In the event that you have worsening symptoms or concerns please return immediately. Even though you signed out AGAINST MEDICAL ADVICE today there is no condemnation or judgments made against you and we walking you back with open arms. Please note that we care about you and want what is best for you. As mentioned, please take your aspirin daily. Continue with all of your regular medications daily. Forms: Follow-Up Radiology Testing Referrals: JAYME HERNÁNDEZ MD [Primary Care Provider] - Follow up as needed
[2017-09-05 11:24] LABS: ALANINE AMINOTRANSFERASE 25 U/L (9-52); ALBUMIN 4.2 g/dL (3.5-5.0); ALKALINE PHOSPHATASE 72 U/L (38-126); ANION GAP 11 (5-19); ASPARTATE AMINO TRANSFERASE 13 U/L (14-36); BILIRUBIN,DIRECT 0.2 mg/dL (0.0-0.4); BILIRUBIN,TOTAL 0.3 mg/dL (0.2-1.3); BLOOD UREA NITROGEN 12 mg/dL (7-20); CALCIUM 10.2 mg/dL (8.4-10.2); CARBON DIOXIDE 33 mmol/L (22-30); CHLORIDE 102 mmol/L (98-107); GLUCOSE 101 mg/dL (75-110); POTASSIUM 3.9 mmol/L (3.6-5.0); SODIUM 145.6 mmol/L (137-145); TOTAL PROTEIN 7.2 g/dL (6.3-8.2)
--- NOTE | 2017-09-05 12:22 | RADIOLOGY REPORT (SQ) ---
EXAM DESCRIPTION: CTA HEAD COMPLETED DATE/TIME: 09/05/2017 12:08 pm REASON FOR STUDY: ataxia, neck pain, felt pop, r/o dissection COMPARISON: None. TECHNIQUE: Axial images acquired through the brain without and with intravenous contrast. Images re viewed with bone, brain and subdural windows. Additional sagittal and coronal reconstructions were g enerated. Images stored on PACS. CT angio chinik of [place] was performed. Thin section postcontrast CT images were reviewed with maxim um intensity projected images of the chinik of [place] in multiple orientations. All CT scanners at this facility use dose modulation, iterative reconstruction, and/or weight based d osing when appropriate to reduce radiation dose to as low as reasonably achievable (ALARA). [facility]: Dose Right [facility]: CareDose [facility]: Dose Right [facility]: Teradose 4D [facility]: [employer]Cache CONTRAST TYPE AND DOSE: 69 mL Isovue 370- low osmolar. RENAL FUNCTION: BUN 12 creatinine 0.59. RADIATION DOSE: . LIMITATIONS: None. FINDINGS: VENTRICLES: Normal size and contour. CEREBRUM: No masses. No hemorrhage. No midline shift. No evidence for acute infarction. Normal gra y/white matter differentiation. No areas of low density in the white matter. CEREBELLUM: No masses. No hemorrhage. No alteration of density. No evidence for acute infarction. No enhancing lesions. EXTRA-AXIAL SPACES: No fluid collections. No enhancing lesions. ORBITS AND GLOBE: No intra- or extraconal masses. Normal contour of globe without masses. CALVARIUM: No fracture. PARANASAL SINUSES: No fluid or mucosal thickening. SOFT TISSUES: No mass or hematoma. OTHER: No other significant finding. CTA COW: EEK OF [place]: Scattered calcified plaque in the carotid arteries. The anterior, middle, posterio r cerebral arteries are all patent. No evidence of aneurysm or focal stenosis. POSTERIOR CIRCULATION: The distal vertebral arteries are patent as is the basilar artery. The left v ertebral artery is dominant. The right vertebral artery is small and ends at the PICA. No aneurysm. OTHER: No other significant finding. IMPRESSION: NORMAL BRAIN CT WITH AND WITHOUT CONTRAST. NO CTA EVIDENCE OF STENOSIS OR ANEURYSM OF THE EEK OF [place]. NO DISSECTION. EVIDENCE OF ACUTE STROKE: NO. TECHNICAL DOCUMENTATION: JOB ID: [id number] Quality ID # 436: Final reports with documentation of one or more dose reduction techniques (e.g., Au tomated exposure control, adjustment of the mA and/or kV according to patient size, use of iterative reconstruction technique) 2010 [employer]- All Rights Reserved Reading location - IP/workstation name: [email or web address]
--- NOTE | 2017-09-05 12:26 | RADIOLOGY REPORT (SQ) ---
EXAM DESCRIPTION: CTA NECK COMPLETED DATE/TIME: 09/05/2017 12:08 pm REASON FOR STUDY: ataxia, neck pain, felt pop, r/o dissection COMPARISON: None. TECHNIQUE: Axial dynamic scanning technique with dynamic contrast enhancement through the extra-aircraft machinist helper nial carotid and vertebral arteries. Multiplanar reconstruction. 3-D MIPS and Volume-rendered imag es acquired at the workstation and saved to PACS. Images are reviewed in soft tissue, bone, lung w indows. All CT scanners at this facility use dose modulation, iterative reconstruction, and/or weight based d osing when appropriate to reduce radiation dose to as low as reasonably achievable (ALARA). [facility]: Dose Right [facility]: CareDose [facility]: Dose Right [facility]: Teradose 4D [facility]: [employer] CONTRAST TYPE AND DOSE: contrast/concentration: Isovue 370.00 mg/ml; Total Contrast Delivered: 69.0 ml; Total Saline Delivered: 75.0 ml RENAL FUNCTION: BUN 12 creatinine 0.59. LIMITATIONS: None. FINDINGS: AORTIC ARCH: Normal three-vessel origin. Bilateral subclavian arteries are patent. No d issection. RIGHT CAROTIDS: Patent common, internal and external carotid arteries. Scattered calcified plaque. Calcified plaque in the proximal internal carotid artery with approximately 50% luminal narrowing. N o dissection. RIGHT VERTEBRAL: Small but patent. Ends at the PICA. No dissection. LEFT CAROTIDS: Patent common, internal and external carotid arteries. Scattered calcified plaque. C alcified plaque in the proximal internal carotid artery with approximately 50% luminal narrowing. No dissection. LEFT VERTEBRAL: Patent. No dissection. OTHER: No other significant finding. OTHER: 3-D reconstructions confirm findings. IMPRESSION: CALCIFIED PLAQUE IN THE CAROTID ARTERIES. APPROXIMATELY 50% STENOSIS OF THE PROXIMAL RI GHT AND LEFT INTERNAL CAROTID ARTERIES. NO EVIDENCE OF DISSECTION IN THE CAROTID OR VERTEBRAL ARTERI ES. COMMENT: Quality ID #[id number]: Measurements of distal internal carotid diameter were used as the denomina tor for stenosis measurement. TECHNICAL DOCUMENTATION: JOB ID: [id number] Quality ID # 436: Final reports with documentation of one or more dose reduction techniques (e.g., Au tomated exposure control, adjustment of the mA and/or kV according to patient size, use of iterative reconstruction technique) 2010 [employer] All Rights Reserved Reading location - IP/workstation name: [email or web address]
[2017-09-05 13:57] VITALS: BP 148/68
== END 2017-09-05 14:10 | disposition home or self-care (01) ==
LOC: ER 10:08
DX: M54.2 Cervicalgia (principal); R42 Dizziness and giddiness; E78.00 Pure hypercholesterolemia, unspecified; I10 Essential (primary) hypertension; Z88.6 Allergy status to analgesic agent; Z88.0 Allergy status to penicillin; Z88.3 Allergy status to other anti-infective agents; Z88.2 Allergy status to sulfonamides; Z90.710 Acquired absence of both cervix and uterus
CPT/HCPCS: 36415; 70496; 70498; 80053; 84484; 85025; 93005; 93010; 99284

== ENCOUNTER → 2018-04-15 | Outpatient (CLI) | payer MEDICARE ==
--- NOTE | 2018-04-15 13:34 | WOMENS IMAGING REPORT ---
EXAM DESCRIPTION: LEFT DIAGNOSTIC MAMMO W/CAD; U/S BREAST UNILAT LIMITED COMPLETED DATE/TIME: 04/15/2018 10:22 am; 04/15/2018 11:02 am REASON FOR STUDY: LEFT DIAGNOSTIC MAMMO /N63.20 BREAST LUMP ON LEFT SIDE AT 9'OCLOCK POSITION; LEFT BREAST LUMP N63.23 UNSPECIFIED LUMP IN THE LEFT BREAST, LOWER OUTER QUAD COMPARISON: Multiple since 2010 TECHNIQUE: Cone compression craniocaudal and mediolateral oblique images of the breast recorded with digital acquisition. Left breast 90 mediolateral view, and CC view Left breast ultrasound LIMITATIONS: None. FINDINGS: BREAST: Left MASSES: No suspicious masses. CALCIFICATIONS: No new or suspicious calcifications. ARCHITECTURAL DISTORTION: None. DEVELOPING DENSITY: None. ASYMMETRY: None noted. OTHER: No other significant findings. Read with the assistance of CAD. .[facility] - R2 Cenova Version 1.3 .[facility] Imaging - R2 Cenova Version 1.3 .[facility] Imaging - R2 Cenova Version 2.4 .[facility] - R2 Cenova Version 2.4 .[facility] - R2 Tool Grinder Version 9.2 Left breast ultrasound: Patient indicates an area of breast pain and palpable abnormality medially left breast about 20 cm fr om the nipple, 9 o'clock position. Ultrasound of this area demonstrates no focal findings. No. No masses. No acoustic absorption. IMPRESSION: No mammographic or sonographic evidence for malignancy left breast BREAST DENSITY: a. The breasts are almost entirely fatty. BIRAD: 1 Negative. RECOMMENDATION: RECOMMENDED FOLLOW UP: Please continue yearly bilateral screening mammography/tomosy nthesis in July 2018 SPECIFIC INTERVENTION/IMAGING/CONSULTATION RECOMMENDED:No additional intervention/ imaging/consultati on needed at this time. COMMUNICATION:Patient notified by letter COMMENT: The patient has been notified of the results by letter per SA requirements. Additional no tification policies are in place for contacting patient with suspicious or incomplete findings. Quality ID #225: The [employer] recommends an annual screening mammogram for women aged 40 years or over. This facility utilizes a reminder system to ensure that all patients receive reminder letters, and/or direct phone calls for appointments. This includes reminders for routine scr eening mammograms, diagnostic mammograms, or other Breast Imaging Interventions when appropriate. Th is patient will be placed in the appropriate reminder system. The [employer] (ACR) has developed recommendations for screening MRI of the breast s in certain patient populations, to be used in conjunction with mammography. Breast MRI surveillanc e may be appropriate for women with more than 20% lifetime risk of developing breast cancer as deter mined by genetic testing, significant family history of the disease, or history of mantle radiation f or Hodgkins Disease. ACR Practice Guidelines 2008. TECHNICAL DOCUMENTATION: FINDING NUMBER: (1) ASSESSMENT: (1) JOB ID: [id number] [employer]- All Rights Reserved Reading location - IP/workstation name: [email or web address]-[email or web address]
--- NOTE | 2018-04-15 13:34 | WOMENS IMAGING REPORT ---
EXAM DESCRIPTION: LEFT DIAGNOSTIC MAMMO W/CAD; U/S BREAST UNILAT LIMITED COMPLETED DATE/TIME: 04/15/2018 10:22 am; 04/15/2018 11:02 am REASON FOR STUDY: LEFT DIAGNOSTIC MAMMO /N63.20 BREAST LUMP ON LEFT SIDE AT 9'OCLOCK POSITION; LEFT BREAST LUMP N63.23 UNSPECIFIED LUMP IN THE LEFT BREAST, LOWER OUTER QUAD COMPARISON: Multiple since 2010 TECHNIQUE: Cone compression craniocaudal and mediolateral oblique images of the breast recorded with digital acquisition. Left breast 90 mediolateral view, and CC view Left breast ultrasound LIMITATIONS: None. FINDINGS: BREAST: Left MASSES: No suspicious masses. CALCIFICATIONS: No new or suspicious calcifications. ARCHITECTURAL DISTORTION: None. DEVELOPING DENSITY: None. ASYMMETRY: None noted. OTHER: No other significant findings. Read with the assistance of CAD. .[facility] - R2 Cenova Version 1.3 .[facility] - R2 Cenova Version 1.3 .[facility] - R2 Cenova Version 2.4 .[facility] - R2 Cenova Version 2.4 .[facility] - R2 Executive Chef Version 9.2 Left breast ultrasound: Patient indicates an area of breast pain and palpable abnormality medially left breast about 20 cm fr om the nipple, 9 o'clock position. Ultrasound of this area demonstrates no focal findings. No. No masses. No acoustic absorption. IMPRESSION: No mammographic or sonographic evidence for malignancy left breast BREAST DENSITY: a. The breasts are almost entirely fatty. BIRAD: 1 Negative. RECOMMENDATION: RECOMMENDED FOLLOW UP: Please continue yearly bilateral screening mammography/tomosy nthesis in July 2018 SPECIFIC INTERVENTION/IMAGING/CONSULTATION RECOMMENDED:No additional intervention/ imaging/consultati on needed at this time. COMMUNICATION:Patient notified by letter COMMENT: The patient has been notified of the results by letter per SA requirements. Additional no tification policies are in place for contacting patient with suspicious or incomplete findings. Quality ID #225: The [employer] recommends an annual screening mammogram for women aged 40 years or over. This facility utilizes a reminder system to ensure that all patients receive reminder letters, and/or direct phone calls for appointments. This includes reminders for routine scr eening mammograms, diagnostic mammograms, or other Breast Imaging Interventions when appropriate. Th is patient will be placed in the appropriate reminder system. The [employer] (ACR) has developed recommendations for screening MRI of the breast s in certain patient populations, to be used in conjunction with mammography. Breast MRI surveillanc e may be appropriate for women with more than 20% lifetime risk of developing breast cancer as deter mined by genetic testing, significant family history of the disease, or history of mantle radiation f or Hodgkins Disease. ACR Practice Guidelines 2008. TECHNICAL DOCUMENTATION: FINDING NUMBER: (1) ASSESSMENT: (1) JOB ID: [id number] [employer]- All Rights Reserved Reading location - IP/workstation name: [email or web address]
== END ==
LOC: WI 09:40
PROVIDERS: ATTEND Nurse Practitioner Family
DX: N63.23 Unspecified lump in the left breast, lower outer quadrant (principal)
CPT/HCPCS: 76642

== ENCOUNTER → 2018-08-07 | Outpatient (CLI) | payer MEDICARE ==
--- NOTE | 2018-08-07 15:31 | WOMENS IMAGING REPORT ---
EXAM DESCRIPTION: BILAT SCREENING MAMMO W/CAD COMPLETED DATE/TIME: 08/07/2018 8:52 am REASON FOR STUDY: Z12.31 ROUTINE BILATERAL SCREENING Z12.31 ENCNTR SCREEN MAMMOGRAM FOR MALIGNANT N EOPLASM OF LYUBOV COMPARISON: 2014 to 2017 TECHNIQUE: Standard craniocaudal and mediolateral oblique views of each breast recorded using [employer] l acquisition. LIMITATIONS: None. FINDINGS: No masses, calcifications or architectural distortion. No areas of suspicion. Read with the assistance of CAD. .[facility] - R2 Cenova Version 1.3 .[facility] - R2 Cenova Version 2.1 .[facility] - R2 Cenova Version 2.4 .[facility] [place] - R2 Cenova Version 2.4 .[facility] - R2 Cosmetic Sales Assistant Version 9.2 IMPRESSION: NORMAL MAMMOGRAM. BIRADS 1. BREAST DENSITY: a. The breasts are almost entirely fatty. BIRAD: 1 NEGATIVE RECOMMENDATION: ROUTINE SCREENING COMMENT: The patient has been notified of the results by letter per SA requirements. Additional no tification policies are in place for contacting patient with suspicious or incomplete findings. Quality ID #225: The [employer] recommends an annual screening mammogram for women aged 40 years or over. This facility utilizes a reminder system to ensure that all patients receive reminder letters, and/or direct phone calls for appointments. This includes reminders for routine scr eening mammograms, diagnostic mammograms, or other Breast Imaging Interventions when appropriate. Th is patient will be placed in the appropriate reminder system. The [employer] (ACR) has developed recommendations for screening MRI of the breast s in certain patient populations, to be used in conjunction with mammography. Breast MRI surveillanc e may be appropriate for women with more than 20% lifetime risk of developing breast cancer as deter mined by genetic testing, significant family history of the disease, or history of mantle radiation f or Hodgkins Disease. ACR Practice Guidelines 2008. TECHNICAL DOCUMENTATION: FINDING NUMBER: (1) ASSESSMENT: (1) JOB ID: [id number] [employer]- All Rights Reserved Reading location - IP/workstation name: [email or web address]
== END ==
LOC: WI 08:26
PROVIDERS: ATTEND Nurse Practitioner Family
DX: Z12.31 Encounter for screening mammogram for malignant neoplasm of breast (principal)
CPT/HCPCS: 77067

== ENCOUNTER 2019-06-03 10:10 | Emergency (ER) | payer MEDICARE ==
--- NOTE | 2019-06-03 10:39 | ER Document Report ---
ED Medical Screen (RME) - General Chief Complaint: Blood Pressure Problem Stated Complaint: BLOOD PRESSURE ISSUE Time Seen by Provider: 06/03/19 10:32 Primary Care Provider: AGUSTIN COVARRUBIAS, TAMERA [Primary Care Provider] - Follow up as needed TRAVEL OUTSIDE OF THE [place] IN LAST 30 DAYS: No - HPI Notes: 06/03/19 11:39 5-year-old female presents emergency room for frontal headache, elevated blood pressure blurred vision nausea for the last 3 days. Patient states her blood pressures been running 173/1 100s which is not her normal, typically she is 140/80. Patient is managed by Dr. Carlin in [place], her bark peeler, for her hypertension. Patient was recently switched on her blood pressure medication, telmisartan, he milligrams twice a day. Patient called her bark peeler today for her concerns of her headache with her blood pressure being elevated, they advised her to come to the emergency room immediately. Denies any shortness of breath or chest pain, denies any weakness down bilateral arms or legs, no nausea vomiting or diarrhea, patient did take her blood pressure medication this morning. Patient denies having history of headaches and says this is abnormal for her to have headache I have greeted and performed a rapid initial assessment of this patient. A comprehensive ED assessment and evaluation of the patient, analysis of test results and completion of the medical decision making process will be conducted by additional ED providers. PHYSICAL EXAMINATION: GENERAL: Well-appearing, well-nourished and in no acute distress. HEAD: Atraumatic, normocephalic. EYES: Pupils equal round extraocular movements intact, conjunctiva are normal. NECK: Normal range of motion CV: s1, s2 regular LUNGS: No respiratory distress Musculoskeletal: Normal range of motion NEUROLOGICAL: Normal speech, normal gait. SKIN: Warm, Dry, normal turgor, no rashes or lesions noted. - Related Data Allergies/Adverse Reactions: acetaminophen [From Vicodin] Allergy (Verified 06/03/19 10:35) albuterol [From Proventil HFA] Allergy (Verified 06/03/19 10:35) amoxicillin [From Augmentin] Allergy (Verified 06/03/19 10:35) atenolol Allergy (Verified 06/03/19 10:35) brompheniramine [From Drixoral] Allergy (Verified 06/03/19 10:35) cisapride [From Propulsid] Allergy (Verified 06/03/19 10:35) clavulanic acid [From Augmentin] Allergy (Verified 06/03/19 10:35) clindamycin Allergy (Verified 06/03/19 10:35) dexbrompheniramine [From Drixoral] Allergy (Verified 06/03/19 10:35) erythromycin base [From Sloan-Tab] Allergy (Verified 06/03/19 10:35) fluvastatin [From Lescol] Allergy (Verified 06/03/19 10:35) hydrocodone [From Vicodin] Allergy (Verified 06/03/19 10:35) ibuprofen Allergy (Verified 06/03/19 10:35) metoprolol [From Toprol XL] Allergy (Verified 06/03/19 10:35) metronidazole Allergy (Verified 06/03/19 10:35) misoprostol [From Cytotec] Allergy (Verified 06/03/19 10:35) mometasone furoate [From Asmanex Twisthaler] Allergy (Verified 06/03/19 10:35) naproxen [From Anaprox] Allergy (Verified 06/03/19 10:35) nefazodone [From Serzone] Allergy (Verified 06/03/19 10:35) nitrofurantoin [From Macrobid] Allergy (Verified 06/03/19 10:35) orphenadrine [From Norflex] Allergy (Verified 06/03/19 10:35) pirbuterol [From Maxair Autohaler] Allergy (Verified 06/03/19 10:35) pseudoephedrine [From Drixoral] Allergy (Verified 06/03/19 10:35) rifampin Allergy (Verified 06/03/19 10:35) Sulfa (Sulfonamide Antibiotics) Allergy (Verified 06/03/19 10:35) tiotropium [From Spiriva with HandiHaler] Allergy (Verified 06/03/19 10:35) trandolapril [From Mavik] Allergy (Verified 06/03/19 10:35) valsartan [From Diovan] Allergy (Verified 06/03/19 10:35) vancomycin Allergy (Verified 06/03/19 10:35) Past Medical History - Past Medical History Cardiac Medical History: Reports: Hx Hypercholesterolemia, Hx Hypertension Pulmonary Medical History: Reports: Hx Asthma Renal/ Medical History: Denies: Hx Peritoneal Dialysis Past Surgical History: Reports: Hx Hysterectomy, Hx Orthopedic Surgery - back surgery, knee surgery, shoulder surgery Physical Exam - Vital signs Vitals: Temp Pulse Resp BP Pulse Ox 97.3 F 87 18 174/65 H 97 06/03/19 10:33 06/03/19 10:33 06/03/19 10:33 06/03/19 10:33 06/03/19 10:33 Course - Vital Signs Vital signs: Temp Pulse Resp BP Pulse Ox 97.3 F 87 15 172/84 H 97 06/03/19 10:33 06/03/19 10:33 06/03/19 11:01 06/03/19 11:01 06/03/19 11:01 Doctor's Discharge - Discharge Referrals: AGUSTIN COVARRUBIAS, TONGUE LINING STITCHER [Primary Care Provider] - Follow up as needed
--- NOTE | 2019-06-03 12:04 | RADIOLOGY REPORT (SQ) ---
EXAM DESCRIPTION: CT HEAD WITHOUT COMPLETED DATE/TIME: 06/03/2019 11:51 am REASON FOR STUDY: CORTEZ x 3 days, b/p 176/63, no hx of CORTEZ COMPARISON: None. TECHNIQUE: Axial images acquired through the brain without intravenous contrast. Images reviewed wi th bone, brain and subdural windows. Additional sagittal and coronal reconstructions were generated. Images stored on PACS. All CT scanners at this facility use dose modulation, iterative reconstruction, and/or weight based d osing when appropriate to reduce radiation dose to as low as reasonably achievable (ALARA). [facility]: Dose Right [facility]: CareDose [facility]: Dose Right [facility]: Teradose 4D [facility]: Wheebox RADIATION DOSE: CT Rad equipment meets quality standard of care and radiation dose reduction techniq ues were employed. CTDIvol: 53.2 mGy. DLP: 1044 mGy-cm. mGy. LIMITATIONS: None. FINDINGS: VENTRICLES: Normal size and contour. CEREBRUM: No masses. No hemorrhage. No midline shift. No evidence for acute infarction. Normal gra y/white matter differentiation. No areas of low density in the white matter. CEREBELLUM: No masses. No hemorrhage. No alteration of density. No evidence for acute infarction. EXTRAAXIAL SPACES: No fluid collections. No masses. ORBITS AND GLOBE: No intra- or extraconal masses. Normal contour of globe without masses. CALVARIUM: No fracture. PARANASAL SINUSES: No fluid or mucosal thickening. SOFT TISSUES: No mass or hematoma. OTHER: No other significant finding. IMPRESSION: NORMAL BRAIN CT WITHOUT CONTRAST. EVIDENCE OF ACUTE STROKE: NO. COMMENT: Quality ID # [id number]: Final reports with documentation of one or more dose reduction techniques (e.g., Automated exposure control, adjustment of the mA and/or kV according to patient size, use of iterative reconstruction technique) TECHNICAL DOCUMENTATION: JOB ID: [id number] [employer]- All Rights Reserved Reading location - IP/workstation name: [email or web address]
--- NOTE | 2019-06-03 12:19 | RADIOLOGY REPORT (SQ) ---
EXAM DESCRIPTION: CHEST 2 VIEWS COMPLETED DATE/TIME: 06/03/2019 11:56 am REASON FOR STUDY: CORTEZ x 3 days, b/p 176/63, no hx of CORTEZ COMPARISON: 09/15/2016 EXAM PARAMETERS: NUMBER OF VIEWS: two views TECHNIQUE: Digital Frontal and Lateral radiographic views of the chest acquired. RADIATION DOSE: NA LIMITATIONS: none FINDINGS: LUNGS AND PLEURA: No opacities, masses or pneumothorax. No pleural effusion. MEDIASTINUM AND HILAR STRUCTURES: No masses or contour abnormalities. HEART AND VASCULAR STRUCTURES: Heart normal size. No evidence for failure. BONES: No acute findings. HARDWARE: None in the chest. OTHER: No other significant finding. IMPRESSION: NO ACUTE RADIOGRAPHIC FINDING IN THE CHEST. TECHNICAL DOCUMENTATION: JOB ID: [id number] [employer]- All Rights Reserved Reading location - IP/workstation name: [email or web address]
[2019-06-03 12:20] LABS: ABSOLUTE BASOPHILS # (AUTO) 0.1 10^3/uL (0.0-0.2); ABSOLUTE EOSINOPHILS # (AUTO) 0.1 10^3/uL (0.0-0.6); ABSOLUTE LYMPHOCYTES (AUTO) 1.4 10^3/uL (0.5-4.7); ABSOLUTE MONOCYTES (AUTO) 0.6 10^3/uL (0.1-1.4); ABSOLUTE NEUT (AUTO) 6.1 10^3/uL (1.7-8.2); BASOPHILS % (AUTO) 0.9 % (0-2); EOSINOPHILS % (AUTO) 1.1 % (0-6); HEMATOCRIT 40.8 % (36.0-47.0); HEMOGLOBIN 13.7 g/dL (12.0-15.5); LYMPHOCYTES % (AUTO) 17.3 % (13-45); MEAN CORPUSCULAR HEMOGLOBIN 29.1 pg (27.0-33.4); MEAN CORPUSCULAR HGB CONC 33.7 g/dL (32.0-36.0); MEAN CORPUSCULAR VOLUME 86 fl (80-97); MONOCYTES % (AUTO) 7.3 % (3-13); PLATELET COUNT 263 10^3/uL (150-450); RED BLOOD COUNT 4.73 10^6/uL (3.72-5.28); RED CELL DISTRIBUTION WIDTH 14.6 % (11.5-14.0); SEGMENTED NEUTROPHILS % (AUTO) 73.4 % (42-78); TOTAL CELLS COUNTED % (AUTO) 100 %; WHITE BLOOD COUNT 8.3 10^3/uL (4.0-10.5)
[2019-06-03 12:46] LABS: ALBUMIN 4.3 g/dL (3.5-5.0); ALKALINE PHOSPHATASE 83 U/L (38-126); ANION GAP 10 (5-19); ASPARTATE AMINO TRANSFERASE 19 U/L (14-36); BILIRUBIN,DIRECT 0.3 mg/dL (0.0-0.4); BILIRUBIN,TOTAL 0.5 mg/dL (0.2-1.3); BLOOD UREA NITROGEN 14 mg/dL (7-20); CARBON DIOXIDE 29 mmol/L (22-30); CHLORIDE 103 mmol/L (98-107); GLUCOSE 99 mg/dL (75-110); POTASSIUM 4.6 mmol/L (3.6-5.0); TOTAL PROTEIN 7.7 g/dL (6.3-8.2)
[2019-06-03 13:05] LABS: APPEARANCE,URINE CLEAR; BILIRUBIN,URINE NEGATIVE (NEGATIVE); COLOR,URINE YELLOW; GLUCOSE, URINE NEGATIVE (NEGATIVE); KETONES,URINE NEGATIVE (NEGATIVE); LEUKOCYTE ESTERASE,URINE MODERATE (NEGATIVE); NITRITE,URINE NEGATIVE (NEGATIVE); PROTEIN,URINE NEGATIVE (NEGATIVE); UROBILINOGEN,URINE NEGATIVE mg/dL (<2.0)
--- NOTE | 2019-06-03 13:17 | ER Document Report ---
ED General - General Chief Complaint: High Blood Pressure Stated Complaint: BLOOD PRESSURE ISSUE Time Seen by Provider: 06/03/19 10:32 Primary Care Provider: AGUSTIN COVARRUBIAS NP [NO LOCAL MD] - Follow up as needed TRAVEL OUTSIDE OF THE [place] IN LAST 30 DAYS: No - HPI Notes: Patient is a 68-year-old female with a history of hypertension who presents to the emergency department for evaluation of elevated blood pressure and headache. The patient states she is had a longstanding history of high blood pressure. She had been on Cardizem, Norvasc, and HCTZ. She was sent to cardiology because her "heart was all over the place." Her silica filter operator discontinued her HCTZ and her Norvasc, and her chronic lower extremity edema and erythema improved significantly. She was placed back on the HCTZ and became dizzy, so this was discontinued. Her blood pressures were not very well controlled, so 2 separate medications were tried by her silica filter operator. The patient cannot recall what they were, but states that she was too dizzy to be able to tolerate them. She was recently started on telmisartan, initially 20 mg, then 40 mg. She states that her blood pressures at home have been in the 160s to 180s. She has developed a headache over the last several days. This is not the worst headache of her life and it was gradual in onset. It involves her entire head. She states yesterday for a few seconds while staring at her computer her vision was blurred. Otherwise, she denies any difficulty seeing, speaking, swallowing. She is moving her arms and legs without difficulty, with the exception of her left leg which hurts as she needs a knee replacement. She states she is unable to do that until she loses 50 pounds. Otherwise, she has been taking her medications as prescribed, has no other acute complaints or concerns. - Related Data Allergies/Adverse Reactions: acetaminophen [From Vicodin] Allergy (Verified 06/03/19 10:35) albuterol [From Proventil HFA] Allergy (Verified 06/03/19 10:35) amoxicillin [From Augmentin] Allergy (Verified 06/03/19 10:35) atenolol Allergy (Verified 06/03/19 10:35) brompheniramine [From Drixoral] Allergy (Verified 06/03/19 10:35) cisapride [From Propulsid] Allergy (Verified 06/03/19 10:35) clavulanic acid [From Augmentin] Allergy (Verified 06/03/19 10:35) clindamycin Allergy (Verified 06/03/19 10:35) dexbrompheniramine [From Drixoral] Allergy (Verified 06/03/19 10:35) erythromycin base [From Sloan-Tab] Allergy (Verified 06/03/19 10:35) fluvastatin [From Lescol] Allergy (Verified 06/03/19 10:35) hydrocodone [From Vicodin] Allergy (Verified 06/03/19 10:35) ibuprofen Allergy (Verified 06/03/19 10:35) metoprolol [From Toprol XL] Allergy (Verified 06/03/19 10:35) metronidazole Allergy (Verified 06/03/19 10:35) misoprostol [From Cytotec] Allergy (Verified 06/03/19 10:35) mometasone furoate [From Asmanex Twisthaler] Allergy (Verified 06/03/19 10:35) naproxen [From Anaprox] Allergy (Verified 06/03/19 10:35) nefazodone [From Serzone] Allergy (Verified 06/03/19 10:35) nitrofurantoin [From Macrobid] Allergy (Verified 06/03/19 10:35) orphenadrine [From Norflex] Allergy (Verified 06/03/19 10:35) pirbuterol [From Maxair Autohaler] Allergy (Verified 06/03/19 10:35) pseudoephedrine [From Drixoral] Allergy (Verified 06/03/19 10:35) rifampin Allergy (Verified 06/03/19 10:35) Sulfa (Sulfonamide Antibiotics) Allergy (Verified 06/03/19 10:35) tiotropium [From Spiriva with HandiHaler] Allergy (Verified 06/03/19 10:35) trandolapril [From Mavik] Allergy (Verified 06/03/19 10:35) valsartan [From Diovan] Allergy (Verified 06/03/19 10:35) vancomycin Allergy (Verified 06/03/19 10:35) Home Medications: see med list on chart from patient Past Medical History - General Information source: Patient - Social History Smoking Status: Former Smoker Chew tobacco use (# tins/day): No Frequency of alcohol use: Rare Drug Abuse: None Family History: Reviewed & Not Pertinent Patient has suicidal ideation: No Patient has homicidal ideation: No - Past Medical History Cardiac Medical History: Reports: Hx Hypercholesterolemia, Hx Hypertension Pulmonary Medical History: Reports: Hx Asthma Renal/ Medical History: Denies: Hx Peritoneal Dialysis Past Surgical History: Reports: Hx Hysterectomy, Hx Orthopedic Surgery - back surgery, knee surgery, shoulder surgery Review of Systems - Review of Systems Constitutional: No symptoms reported EENT: See HPI Cardiovascular: No symptoms reported Respiratory: No symptoms reported Gastrointestinal: No symptoms reported Genitourinary: No symptoms reported Musculoskeletal: See HPI Skin: No symptoms reported Neurological/Psychological: No symptoms reported Physical Exam - Vital signs Vitals: Temp Pulse Resp BP Pulse Ox 97.3 F 87 18 174/65 H 97 06/03/19 10:33 06/03/19 10:33 06/03/19 10:33 06/03/19 10:33 06/03/19 10:33 - Notes Notes: This is a very pleasant 68-year-old female who appears her stated age in no acute distress. She is sitting at the bedside. Vital signs reviewed, please refer to chart. Head is normocephalic, atraumatic. Pupils equal round, reactive to light. Neck is supple without meningismus. Heart is regular rate and rhythm. Lungs are clear to auscultation bilaterally. Abdomen is soft, nontender, normoactive bowel sounds throughout. Extremities without cyanosis, clubbing. Posterior calves are nontender. Peripheral pulses are equal. Skin is warm and dry. Patient is awake, alert, oriented x3. Cranial nerves II - XII are grossly intact without focal neurological deficits. Strength is plus 4 out of 5 bilateral upper and lower extremities. Sensation is intact. Reflexes symmetrical. Intact [id number], rapid alternating movements, [id number]. Course - Re-evaluation Re-evalutation: 06/03/19 13:16 Patient presents to the emergency department for evaluation. Besides her headache, the patient has no other acute complaints. She is not indicating any issues concerning for endorgan damage. Her blood pressure is moderately elevated here, but not emergently so. Her physical exam is unremarkable. Her laboratory investigations and imaging failed to reveal any signs concerning for endorgan damage as well. Unfortunately, the patient is unsure what other blood pressure medications she has not tolerated in the past. I do believe this patient will require further medication adjustment, but I do not believe it needs to be handled urgently. She is following closely with her silica filter operator in regards to this issue. She is to further discuss this with her silica filter operator, and continue to keep a record of her blood pressures at home. We discussed any symptoms that should prompt her immediately to return and she voiced understanding. 06/03/19 13:30 I discussed the small amount of white blood cells in her urine. The patient again reaffirms she has no urinary symptoms. She states is not uncommon for her to have white cells in her urine, she follows with urology in regards to that. The patient will be discharged. - Vital Signs Vital signs: Temp Pulse Resp BP Pulse Ox 97.3 F 87 17 164/87 H 97 06/03/19 10:33 06/03/19 10:33 06/03/19 12:01 06/03/19 12:01 06/03/19 12:01 - Laboratory Result Diagrams: 06/03/19 11:59 06/03/19 11:59 Laboratory results interpreted by me: 06/03/19 06/03/19 11:59 12:30 RDW 14.6 H Ur Leukocyte Esterase MODERATE H - Diagnostic Test Radiology reviewed: Reports reviewed Radiology results interpreted by me: 06/03/19 13:17 Chest X-Ray 06/03/19 10:39 IMPRESSION: NO ACUTE RADIOGRAPHIC FINDING IN THE CHEST. Head CT 06/03/19 10:42 IMPRESSION: NORMAL BRAIN CT WITHOUT CONTRAST. EVIDENCE OF ACUTE STROKE: NO. - EKG Interpretation by Me Additional EKG results interpreted by de: 06/03/19 13:17 Sinus mechanism with a rate of 73 bpm. Normal axis and intervals. Nonspecific ST and T wave changes, but no acute changes concerning for infarction. No old studies available for comparison. Discharge - Discharge Clinical Impression: Hypertension Qualifiers: Hypertension type: essential hypertension Qualified Code(s): I10 - Essential (primary) hypertension Headache Qualifiers: Headache type: unspecified Headache chronicity pattern: acute headache Condition: Stable Disposition: HOME, SELF-CARE Instructions: High Blood Pressure, Requiring Treatment ([facility]), Headache ([facility]) Additional Instructions: Continue your regular medications as prescribed. Continue the check your blood pressure regularly, bring this record with you to your primary care/silica filter operator office. You will likely require further adjustment of your antihypertensive medication for good blood pressure control. If you develop difficulty speaking or swallowing, difficulty moving your arms or legs, chest pain, shortness of breath, or any other new or concerning symptoms, please return immediately to the emergency department for reevaluation. Referrals: AGUSTIN COVARRUBIAS NP [NO LOCAL MD] - Follow up as needed
[2019-06-03 13:49] VITALS: BP 141/60
--- NOTE | 2019-06-03 15:41 | EKG REPORT ---
SEVERITY:- BORDERLINE ECG - SINUS RHYTHM BORDERLINE T ABNORMALITIES, ANTERIOR LEADS : Confirmed by: Reshma Huerta MD 03-Jun-2019 15:41:09
== END 2019-06-03 13:49 | disposition home or self-care (01) ==
LOC: ER 10:10
DX: I10 Essential (primary) hypertension (principal); R51 Headache; Z79.899 Other long term (current) drug therapy; M79.605 Pain in left leg; J45.909 Unspecified asthma, uncomplicated; Z87.891 Personal history of nicotine dependence; Z88.8 Allergy status to other drugs, medicaments and biological substances; Z88.0 Allergy status to penicillin; Z88.1 Allergy status to other antibiotic agents; Z88.6 Allergy status to analgesic agent; Z88.5 Allergy status to narcotic agent; Z88.2 Allergy status to sulfonamides
CPT/HCPCS: 36415; 70450; 71046; 80053; 81001; 84484; 85025; 93005; 93010; 99284

== ENCOUNTER 2019-08-24 15:19 | Emergency (ER) | payer MEDICARE ==
--- NOTE | 2019-08-24 17:25 | ER Document Report ---
ED General - General Chief Complaint: Vision Problem Stated Complaint: BLURRED VISION Time Seen by Provider: 08/24/19 17:24 Primary Care Provider: AGUSTIN COVARRUBIAS, HEARING AID TECHNICIAN [Primary Care Provider] - Follow up as needed Mode of Arrival: Ambulatory Information source: Patient Notes: triage hx Pt ambulated into the ER with complaints of L eye blurriness. She called her [facility] care provider and was told to go to the ER because, "you maybe having a stroke"! Pt drove here. No slurring of speech, no problems walking, pupils equal and reactive to light. A/O x4. my note; 68-year-old female arrives by POV after she had blurry vision in her left eye only which began around 3 PM while she was washing the afternoon news on television. This is never happened before. 50 minutes later only one half of her vision in her left eye was affected.. This was the left lateral half. Patient continues to have blurry vision in the left lateral aspect of her visual rizzo. Right eye is within normal limits. Patient reports she just began taking triamterene and telmisartan since May and has been coughing nonproductively since she began these medicine but the swelling in her legs that she had prior to this time has instantly gone to a normal size. Patient denies any prior history of any HERMILO inhibitor medicines. Patient reports over the last month or 2 she been having left lateral neck and ear and back of head pain. She has been taking Tylenol for this pain. TRAVEL OUTSIDE OF THE [place] IN LAST 30 DAYS: No - HPI Onset: Just prior to arrival - Related Data Allergies/Adverse Reactions: acetaminophen [From Vicodin] Allergy (Verified 06/03/19 10:35) albuterol [From Proventil HFA] Allergy (Verified 06/03/19 10:35) amoxicillin [From Augmentin] Allergy (Verified 06/03/19 10:35) atenolol Allergy (Verified 06/03/19 10:35) brompheniramine [From Drixoral] Allergy (Verified 06/03/19 10:35) cisapride [From Propulsid] Allergy (Verified 06/03/19 10:35) clavulanic acid [From Augmentin] Allergy (Verified 06/03/19 10:35) clindamycin Allergy (Verified 06/03/19 10:35) dexbrompheniramine [From Drixoral] Allergy (Verified 06/03/19 10:35) erythromycin base [From Sloan-Tab] Allergy (Verified 06/03/19 10:35) fluvastatin [From Lescol] Allergy (Verified 06/03/19 10:35) hydrocodone [From Vicodin] Allergy (Verified 06/03/19 10:35) ibuprofen Allergy (Verified 06/03/19 10:35) metoprolol [From Toprol XL] Allergy (Verified 06/03/19 10:35) metronidazole Allergy (Verified 06/03/19 10:35) misoprostol [From Cytotec] Allergy (Verified 06/03/19 10:35) mometasone furoate [From Asmanex Twisthaler] Allergy (Verified 06/03/19 10:35) naproxen [From Anaprox] Allergy (Verified 06/03/19 10:35) nefazodone [From Serzone] Allergy (Verified 06/03/19 10:35) nitrofurantoin [From Macrobid] Allergy (Verified 06/03/19 10:35) orphenadrine [From Norflex] Allergy (Verified 06/03/19 10:35) pirbuterol [From Maxair Autohaler] Allergy (Verified 06/03/19 10:35) pseudoephedrine [From Drixoral] Allergy (Verified 06/03/19 10:35) rifampin Allergy (Verified 06/03/19 10:35) Sulfa (Sulfonamide Antibiotics) Allergy (Verified 06/03/19 10:35) tiotropium [From Spiriva with HandiHaler] Allergy (Verified 06/03/19 10:35) trandolapril [From Mavik] Allergy (Verified 06/03/19 10:35) valsartan [From Diovan] Allergy (Verified 06/03/19 10:35) vancomycin Allergy (Verified 06/03/19 10:35) Past Medical History - General Information source: Patient - Social History Smoking Status: Unknown if Ever Smoked Cigarette use (# per day): No Chew tobacco use (# tins/day): No Smoking Education Provided: No Frequency of alcohol use: None Drug Abuse: None Lives with: Family Family History: Reviewed & Not Pertinent Patient has suicidal ideation: No Patient has homicidal ideation: No - Past Medical History Cardiac Medical History: Reports: Hx Hypercholesterolemia, Hx Hypertension Pulmonary Medical History: Reports: Hx Asthma Renal/ Medical History: Denies: Hx Peritoneal Dialysis Past Surgical History: Reports: Hx Hysterectomy, Hx Orthopedic Surgery - back surgery, knee surgery, shoulder surgery Review of Systems - Review of Systems Constitutional: No symptoms reported EENT: No symptoms reported, Blurred vision Cardiovascular: No symptoms reported Respiratory: No symptoms reported Gastrointestinal: No symptoms reported Genitourinary: No symptoms reported Female Genitourinary: No symptoms reported Musculoskeletal: No symptoms reported Skin: No symptoms reported Hematologic/Lymphatic: No symptoms reported Neurological/Psychological: No symptoms reported Physical Exam - Vital signs Interpretation: Normal - General General appearance: Appears well, Alert - HEENT Head: Normocephalic Eyes: Normal Conjunctiva: Normal Cornea: Normal Extraocular movements intact: Yes Eyelashes: Normal Pupils: PERRL Sinus: Normal Nasal: Normal Mouth/Lips: Normal Pharynx: Normal - Right Neck: Normal, Other - No carotid bruits heard and no thyroidomegaly trachea midline - Respiratory Respiratory status: No respiratory distress Chest status: Nontender Breath sounds: Nonproductive cough Chest palpation: Normal - Cardiovascular Rhythm: Regular Murmur: No Friction rub: No Ariella's crunch: No - Abdominal Inspection: Normal Distension: No distension - Back Back: Normal - Extremities General upper extremity: Normal inspection General lower extremity: Normal inspection - Neurological Neuro grossly intact: Yes Cognition: Normal Orientation: AAOx4 Ju[place]o Coma Scale Eye Opening: Spontaneous [place] Coma Scale Verbal: Oriented [place] Coma Scale Motor: Obeys Commands Argenta Coma Scale Total: 15 Speech: Normal Cranial nerves: Normal Cerebellar coordination: Normal Motor strength normal: LUE, RUE, LLE, RLE - Psychological Associated symptoms: Normal affect - Skin Skin Temperature: Warm Skin Moisture: Dry - ARB induced cough started in May; 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 Giovanny Hein and he advises he will see her tomorrow in the office at 0 830 Discharge - Discharge Clinical Impression: Blurry vision, left eye Condition: Good Disposition: HOME, SELF-CARE Additional Instructions: Follow-up with Dr. Giovanny Hein in his office tomorrow at 0 830.. Try to be there at at least 0 800 tomorrow. Avoid any other medications other than the ones you usually take. Encourage fluids Referrals: AGUSTIN COVARRUBIAS, TAMERA [Primary Care Provider] - Follow up as needed
--- NOTE | 2019-08-24 18:22 | RADIOLOGY REPORT (SQ) ---
EXAM DESCRIPTION: CT HEAD WITHOUT IMAGES COMPLETED DATE/TIME: 08/24/2019 6:09 pm REASON FOR STUDY: left eye blurry COMPARISON: 06/03/2019 TECHNIQUE: Axial images acquired through the brain without intravenous contrast. Images reviewed wi th bone, brain and subdural windows. Additional sagittal and coronal reconstructions were generated. Images stored on PACS. All CT scanners at this facility use dose modulation, iterative reconstruction, and/or weight based d osing when appropriate to reduce radiation dose to as low as reasonably achievable (ALARA). [facility]: Dose Right [facility]: CareDose [facility]: Dose Right [facility]: Teradose 4D [facility]: Smart [employer] RADIATION DOSE: CT Rad equipment meets quality standard of care and radiation dose reduction techniq ues were employed. CTDIvol: 48.6 mGy. DLP: 880 mGy-cm. mGy. LIMITATIONS: None. FINDINGS: VENTRICLES: Normal size and contour. CEREBRUM: No masses. No hemorrhage. No midline shift. No evidence for acute infarction. Normal gra y/white matter differentiation. No areas of low density in the white matter. CEREBELLUM: No masses. No hemorrhage. No alteration of density. No evidence for acute infarction. EXTRAAXIAL SPACES: No fluid collections. No masses. ORBITS AND GLOBE: No intra- or extraconal masses. Normal contour of globe without masses. CALVARIUM: No fracture. PARANASAL SINUSES: No fluid or mucosal thickening. SOFT TISSUES: No mass or hematoma. OTHER: No other significant finding. IMPRESSION: NORMAL BRAIN CT WITHOUT CONTRAST. EVIDENCE OF ACUTE STROKE: NO. COMMENT: Quality ID # 436: Final reports with documentation of one or more dose reduction techniques (e.g., Automated exposure control, adjustment of the mA and/or kV according to patient size, use of iterative reconstruction technique) TECHNICAL DOCUMENTATION: JOB ID: [id number] 2010 [employer]- All Rights Reserved Reading location - IP/workstation name: [email or web address]
--- NOTE | 2019-08-24 18:27 | RADIOLOGY REPORT (SQ) ---
EXAM DESCRIPTION: CHEST SINGLE VIEW IMAGES COMPLETED DATE/TIME: 08/24/2019 6:17 pm REASON FOR STUDY: left eye blurry COMPARISON: 06/03/2019 EXAM PARAMETERS: NUMBER OF VIEWS: One view. TECHNIQUE: Single frontal radiographic view of the chest acquired. RADIATION DOSE: NA LIMITATIONS: None. FINDINGS: LUNGS AND PLEURA: No opacities, masses or pneumothorax. No pleural effusion. MEDIASTINUM AND HILAR STRUCTURES: No masses. Contour normal. HEART AND VASCULAR STRUCTURES: Stable appearance. Cardiomegaly. Normal vasculature. BONES: No acute findings. HARDWARE: None in the chest. OTHER: No other significant finding. IMPRESSION: 1. No significant interval changes since the prior examination dated 06/03/2019. No acu te findings. TECHNICAL DOCUMENTATION: JOB ID: [id number] 2010 [email or web address]- All Rights Reserved Reading location - IP/workstation name: [email or web address]
--- NOTE | 2019-08-24 18:41 | RADIOLOGY REPORT (SQ) ---
EXAM DESCRIPTION: CT FACIAL AREA WITHOUT IMAGES COMPLETED DATE/TIME: 08/24/2019 6:09 pm REASON FOR STUDY: left eye blurry COMPARISON: None. TECHNIQUE: Noncontrasted images through the facial bones and orbits windowed for bone and soft tissu e. Additional coronal and sagittal reconstructed images reviewed. All images stored on PACS. All CT scanners at this facility use dose modulation, iterative reconstruction, and/or weight based d osing when appropriate to reduce radiation dose to as low as reasonably achievable (ALARA). [facility]: Dose Right [facility]: CareDose [facility]: Dose Right [facility]: Teradose 4D [facility]: Smart [employer] RADIATION DOSE: mGy. LIMITATIONS: None. FINDINGS: FACIAL BONES: No fracture or bone lesion. ORBITS: Intact. No fracture. Symmetric intact globes and retroorbital soft tissues. PARANASAL SINUSES: Clear. No significant mucosal thickening, mass or fluid. No nasal polyps. Maxill conrad sinus outlets are patent. SOFT TISSUES: No mass or edema. INFERIOR BRAIN: See separate report for CT of the head. OTHER: No other significant finding. IMPRESSION: NO ACUTE FINDINGS. TECHNICAL DOCUMENTATION: JOB ID: [id number] Quality ID # [id number]: Final reports with documentation of one or more dose reduction techniques (e.g., Au tomated exposure control, adjustment of the mA and/or kV according to patient size, use of iterative reconstruction technique) 2010 [employer]- All Rights Reserved Reading location - IP/workstation name: [email or web address]
--- NOTE | 2019-08-24 19:01 | RADIOLOGY REPORT (SQ) ---
EXAM DESCRIPTION: CT CERVICAL SPINE WITHOUT IMAGES COMPLETED DATE/TIME: 08/24/2019 6:52 pm REASON FOR STUDY: blurry vision COMPARISON: None. TECHNIQUE: Axial images acquired through the cervical spine without intravenous contrast. Images re viewed with lung, soft tissue and bone windows. Reconstructed coronal and sagittal MPR images review ed. Images stored on PACS. All CT scanners at this facility use dose modulation, iterative reconstruction, and/or weight based d osing when appropriate to reduce radiation dose to as low as reasonably achievable (ALARA). [facility]: Dose Right [facility]: CareDose [facility]: Dose Right [facility]: Teradose 4D [facility]: [employer] RADIATION DOSE: CT Rad equipment meets quality standard of care and radiation dose reduction techniq ues were employed. CTDIvol: 21.6 mGy. DLP: 450 mGy-cm. mGy. LIMITATIONS: None. FINDINGS: ALIGNMENT: Anatomic. MINERALIZATION: Normal. VERTEBRAL BODIES: No fractures or dislocation. DISCS: No significant disc disease. FACETS, LATERAL MASSES, POSTERIOR ELEMENTS: No fractures. No dislocation. No acute findings. HARDWARE: None in the spine. VISUALIZED RIBS: No fractures. LUNG APICES AND SOFT TISSUES: No significant or acute findings. OTHER: No other significant finding. IMPRESSION: NO ACUTE OR SIGNIFICANT FINDINGS IN THE CERVICAL SPINE. TECHNICAL DOCUMENTATION: JOB ID: [id number] Quality ID # 436: Final reports with documentation of one or more dose reduction techniques (e.g., Au tomated exposure control, adjustment of the mA and/or kV according to patient size, use of iterative reconstruction technique) 2010 [employer]- All Rights Reserved Reading location - IP/workstation name: [email or web address]
[2019-08-24 19:45] VITALS: BP 132/65
== END 2019-08-24 19:30 | disposition home or self-care (01) ==
LOC: ER 15:19
DX: H53.8 Other visual disturbances (principal); M54.2 Cervicalgia; H92.02 Otalgia, left ear; R51 Headache; R05 Cough; J45.909 Unspecified asthma, uncomplicated; I10 Essential (primary) hypertension; Z79.899 Other long term (current) drug therapy; Z88.8 Allergy status to other drugs, medicaments and biological substances; Z88.0 Allergy status to penicillin; Z88.1 Allergy status to other antibiotic agents; Z88.6 Allergy status to analgesic agent; Z88.5 Allergy status to narcotic agent; Z88.2 Allergy status to sulfonamides
CPT/HCPCS: 70450; 70486; 71045; 72125; 99285

== ENCOUNTER → 2019-10-13 | Outpatient (CLI) | payer MEDICARE ==
--- NOTE | 2019-10-13 12:19 | WOMENS IMAGING REPORT ---
EXAM DESCRIPTION: BILAT SCREENING MAMMO W/CAD IMAGES COMPLETED DATE/TIME: 10/13/2019 9:39 am REASON FOR STUDY: Z12.31 SCREENING MAMMO Z12.31 ENCNTR SCREEN MAMMOGRAM FOR MALIGNANT NEOPLASM OF B RE COMPARISON: Multiple since 2010 EXAM PARAMETERS: Standard craniocaudal and mediolateral oblique views of each breast recorded using digital acquisition. Read with the assistance of CAD. [email or web address] - [employer] Version 9.2 LIMITATIONS: None. FINDINGS: Findings present which are benign by mammographic criteria. No suspicious masses, calcifi cations or architectural distortion. Pertinent benign findings: Benign bilateral breast nodules and calcifications. Old biopsy clip left breast Benign mammographic findings may include one or more of the following: Smooth masses, popcorn/rim/co arse calcifications, asymmetries, post-procedure changes, and lesions with long-standing stability. IMPRESSION: BENIGN MAMMOGRAPHIC FINDINGS. BIRADS 2 BREAST DENSITY: a. The breasts are almost entirely fatty. BIRAD: ASSESSMENT: 2 BENIGN FINDING(S) RECOMMENDATION: ROUTINE SCREENING COMMENT: The patient has been notified of the results by letter per MQSA requirements. Additional no tification policies are in place for contacting patient with suspicious or incomplete findings. Quality ID #[id number]: The [employer] recommends an annual screening mammogram for women aged 40 years or over. This facility utilizes a reminder system to ensure that all patients receive reminder letters, and/or direct phone calls for appointments. This includes reminders for routine scr eening mammograms, diagnostic mammograms, or other Breast Imaging Interventions when appropriate. Th is patient will be placed in the appropriate reminder system. TECHNICAL DOCUMENTATION: FINDING NUMBER: (1) ASSESSMENT: (1) JOB ID: [id number] 2010 [employer]- All Rights Reserved Reading location - IP/workstation name: [email or web address]
== END ==
LOC: WI 07:55
PROVIDERS: ATTEND Nurse Practitioner Family
DX: Z12.31 Encounter for screening mammogram for malignant neoplasm of breast (principal)
CPT/HCPCS: 77067